=== PATIENT | female | born 1965 | race Caucasian/White ===

== ENCOUNTER 2022-05-15 08:56 | Outpatient (CLI) | payer OTHER, SELFPAY ==
[2022-05-15 13:41] LABS: Basophils Absolute Auto 0.05 K/uL (0.00-0.30); Basophils Percent Auto 0.5 % (0.0-3.0); Chloride* 108 mmol/L (96-114); Eosinophils Absolute Auto 0.56 K/uL (0.00-0.50); Eosinophils Percent Auto 5.3 % (0.0-7.0); Hematocrit 41.5 % (33.0-51.0); Hemoglobin* 14.2 gm/dL (12.0-16.0); Immature Granulocytes Abs Auto 0.04 K/uL (0.00-0.30); Immature Granulocytes Pct Auto 0.4 %; Lymphocytes Absolute Auto 3.34 K/uL (0.90-2.90); Lymphocytes Percent Auto 31.6 % (20-44); Mean Corpuscular HGB Conc 34 gm/dL (32-36); Mean Corpuscular Hemoglobin 30 pg (26-34); Mean Corpuscular Volume 87 fL (80-100); Monocytes Percent Auto 5.9 % (0.0-11.0); Neutrophils Absolute Auto 5.97 K/uL (1.7-7.0); Neutrophils Percent Auto 56.3 % (42.0-72.0); Platelet Count* 354 K/uL (140-440); Potassium* 4.4 mmol/L (3.6-5.1); Red Blood Count 4.78 m/uL (4.00-5.20); Sodium* 142 mmol/L (135-149); White Blood Count* 10.58 K/uL (4.50-11.00)
[2022-05-15 13:44] LABS: Blood Urea Nitrogen* 13 mg/dL (7-30); Carbon Dioxide* 25 mmol/L (20-32); Cholesterol* 229 mg/dL (90-199); Creatinine* 0.7 mg/dL (0.5-1.5); Estimated Glomerular Filt Rate 102 ml/min
[2022-05-15 13:45] LABS: Calcium* 9.4 mg/dL (8.4-10.6); Glucose* 92 mg/dL (60-115); HDL Cholesterol* 51 mg/dL (>=50); LDL Cholesterol Calculated 161 mg/dL (<100); Triglycerides* 84 mg/dL (40-149)
[2022-05-15 13:48] LABS: Slide Review Reflex No
== END 2022-05-15 08:57 | disposition home or self-care (01) ==
PROVIDERS: PCP Family Medicine; Visit Provider Family Medicine
DX: E78.5 Hyperlipidemia, unspecified (principal); I10 Essential (primary) hypertension; R30.0 Dysuria
CPT/HCPCS: 80048; 80061; 85025

== ENCOUNTER 2022-06-19 14:03 | Outpatient (CLI) | payer OTHER, SELFPAY ==
[2022-06-19 21:38] LABS: Basophils Percent Auto 0.3 % (0.0-3.0); Eosinophils Percent Auto 0.9 % (0.0-7.0); Hematocrit 44.4 % (33.0-51.0); Immature Granulocytes Pct Auto 0.2 %; Lymphocytes Percent Auto 18.3 % (20-44); Mean Corpuscular HGB Conc 34 gm/dL (32-36); Mean Corpuscular Hemoglobin 30 pg (26-34); Mean Corpuscular Volume 87 fL (80-100); Monocytes Percent Auto 6.7 % (0.0-11.0); Neutrophils Percent Auto 73.6 % (42.0-72.0); Platelet Count* 381 K/uL (140-440); Red Blood Count 5.09 m/uL (4.00-5.20); White Blood Count* 19.36 K/uL (4.50-11.00)
[2022-06-19 21:42] LABS: Slide Review Reflex No
[2022-06-19 22:04] LABS: SARS PCR* Negative SARS-CoV-2 (Negative)
[2022-06-20 14:21] LABS: Strep A DNA Probe* DETECTED (Not Detectd)
== END 2022-06-19 14:04 | disposition home or self-care (01) ==
PROVIDERS: PCP Family Medicine; Visit Provider Nurse Practitioner Family
DX: Z20.822 Contact with and (suspected) exposure to COVID-19 (principal); J11.1 Influenza due to unidentified influenza virus with other respiratory manifestations; R19.7 Diarrhea, unspecified
CPT/HCPCS: 85025; 87635; 87651

== ENCOUNTER 2022-06-20 08:23 | Emergency (ER) | payer OTHER, SELFPAY ==
[2022-06-20 08:37] VITALS: BP 183/102; TEMP 36.4; O2SAT 96; BMI 37.1
--- NOTE | 2022-06-20 08:54 | ED.GENADULT ---
HPI - General Adult General Chief complaint: Sore Throat Stated complaint: High white blood count/sore throat Time Seen by Provider: 06/20/22 08:38 History of Present Illness HPI narrative: This 56-year-old female was in urgent care yesterday because of sore throat. Her strep test was negative. Her white count returned significantly elevated at around 19,000. She comes in because of persistent sore throat that she feels is worse on the right side of her throat. And because of her increased white count. She denies having any fevers. She does not have a cough. She does not report any shortness of breath. Related Data Home Medications Medication Instructions Recorded Confirmed aspirin 81 mg tablet,delayed 81 mg PO QDAY 11/17/21 06/19/22 release fluorouracil 5 % topical cream 1 applic topical PRN 11/17/21 06/19/22 nitroglycerin 0.4 mg sublingual 0.4 mg sublingual PRN 11/17/21 06/19/22 tablet pantoprazole 40 mg tablet,delayed 40 mg PO BID 11/17/21 06/19/22 release albuterol sulfate 2.5 mg/3 mL 2.5 mg continuous nebulization 12/18/21 06/19/22 (0.083 %) solution for nebulization Q4-6H PRN bupropion HCl 150 mg 24 hr tablet, 150 mg PO DAILY 12/18/21 06/19/22 extended release camphor-menthol 11 %-10 % topical 1 applic topical .as needed PRN 12/18/21 06/19/22 cream fluoxetine 40 mg capsule 40 mg PO DAILY 12/18/21 06/19/22 meloxicam 15 mg tablet 15 mg PO DAILY 12/18/21 06/19/22 sertraline 25 mg tablet 25 mg PO QDAY 12/18/21 06/19/22 Previous Rx's Medication Instructions Recorded cyclobenzaprine 10 mg tablet 5 - 10 mg PO BID PRN muscle spasm 11/17/21 #30 tabs tramadol 50 mg tablet 50 mg PO Q8H PRN pain #40 tabs 11/17/21 amlodipine 10 mg tablet 10 mg PO QDAY #90 tabs 05/15/22 carvedilol 25 mg tablet 25 mg PO BID #180 tabs 05/15/22 chlorthalidone 25 mg tablet 25 mg PO QDAY #90 tabs 05/15/22 clonidine HCl 0.1 mg tablet 0.1 mg PO QDAY #90 tabs 05/15/22 furosemide 40 mg tablet 40 mg PO QDAY #90 tabs 05/15/22 hydralazine 25 mg tablet 50 mg PO TID #540 tabs 05/15/22 irbesartan 300 mg tablet 300 mg PO DAILY #90 tabs 05/15/22 lisinopril 40 mg tablet 40 mg PO DAILY #90 tabs 05/15/22 spironolactone 25 mg tablet 25 mg PO QDAY #90 tabs 05/15/22 albuterol sulfate 90 mcg/actuation 2 puff inhalation Q6H PRN 05/16/22 aerosol inhaler shortness of breath or wheezing #8.5 grams atorvastatin 40 mg tablet 40 mg PO QHS #90 tabs 05/16/22 peg 3350-electrolytes 236 240 ml PO Q10M #4,000 mL 06/07/22 gram-22.74 gram-6.74 gram-5.86 gram solution (Golytely) amoxicillin 875 mg-potassium 1 tab PO BID #20 tabs 06/20/22 clavulanate 125 mg tablet methylprednisolone 4 mg tablets in See Rx Instructions PO .COMPLEX 06/20/22 a dose pack (Medrol (Andrez)) #21 ea Allergies Allergy/AdvReac Type Severity Reaction Status Date / Time morphine Allergy Severe angioedema Verified 06/19/22 13:30 losartan Allergy Mild Flushing Verified 06/19/22 13:30 oxycodone Allergy Mild Nausea Verified 06/19/22 13:30 ceftriaxone Allergy Unknown Verified 06/19/22 13:30 Review of Systems Status of ROS: Reports: 10 or more systems reviewed and unremarkable except as noted in History and below Narrative: Constitutional: No fevers, no weight gain or loss. Eyes: No discharge. No vision changes. HENT: No congestion. Sore throat as described above. Cardiovascular: No chest pain, no palpitations. Respiratory: No shortness of breath, no wheezes, no cough. Gastrointestinal: No abdominal pain, no vomiting, no diarrhea. Genitourinary: No dysuria, no hematuria. Musculoskeletal: Normal range of motion. Skin: No rashes, no pruritis. Neurological: No dizziness, weakness, sensory change, speech change. Endo/Heme/Allergies: No bruising or bleeding. No polydipsia. Pysch: no suicidality, no anxiety, no insomnia. All other systems reviewed and are negative. [facility] Medical History (Updated 06/20/22 @ 08:58 by Callum Zapien MD) Anxiety Branch retinal vein occlusion of left eye (2009) Depression Dyslipidemia Fracture of distal end of fibula Gastroesophageal reflux disease History of esophageal dilatation (2001) History of hydronephrosis (12/02/14) History of Meniere's disease (2008) History of squamous cell carcinoma of skin (01/25/15) History of suicide attempt (04/2013) History of vitamin D deficiency Hyperlipidemia Hypertension Hypertensive urgency (05/2019) Mild intermittent asthma Obstruction of esophagus due to food impaction Presence of cardiac pacemaker Rosacea Schatzki's ring of distal esophagus Surgical History (Updated 11/16/21 @ 16:09 by Jonnie Bryant) History of 3 sections History of cholecystectomy (2013) History of dilation and curettage History of esophagogastroduodenoscopy (EGD) (2010) History of foot surgery (1986) History of hysterectomy (2000) History of lumbar fusion (2010) History of radiofrequency ablation (RFA) procedure for cardiac arrhythmia (06/2011) History of ureterostomy (1985) Status post dilation of esophageal narrowing Social History (Updated 12/19/21 @ 02:18 by Bhupinder Arzola MD) Narrative: Does not drink alcohol Does not have regular exercise regimen , dispatcher [employer], 3 kids Non-smoker Smoking Status: Never smoker Little interest or pleasure in doing things: not at all Feeling down, depressed, or hopeless: not at all Exam Narrative: Exam Narrative: Constitutional: Well-developed, well-nourished, no acute distress. HEENT: Normocephalic, atraumatic. Pharyngeal erythema without significant hypertrophy of the tonsils. There is no exudate. No muffled voice or trismus. Neck: Normal range of motion. Nontender. Supple. Heart: Regular. No murmurs. Normal rate. Intact distal pulses. Lungs: Clear to auscultation. No chest discomfort. No wheezes, rhonchi, or rales. Abdomen: Normal bowel sounds. Nontender. No rebound tenderness. Genitalia: Deferred. Back: No midline tenderness. Normal range of motion. Extremities: Normal range of motion. No injury. Skin: Intact. No rash. Warm. No erythema or pallor. Neurologic: No altered sensation. No weakness. Alert and oriented. Psychiatric: No suicidality. No anxiety or depression. No insomnia. Nursing notes and vitals signs are reviewed. Const: Vital Signs, click to edit/add: Vital Signs - 24 hr 06/20/22 08:37 Temperature 97.6 F Blood Pressure [Ri ght Upper Arm] 183/102 H Pulse Oximetry 96 Oxygen Delivery Me thod Room Air Course Vital Signs Vital signs: Initial Vital Signs Temperature 97.6 F 06/20/22 08:37 Temperature Source Temporal Artery Scan 06/20/22 08:37 Blood Pressure 183/102 H 06/20/22 08:37 Blood Pressure Mean 129 06/20/22 08:37 Pulse Oximetry 96 06/20/22 08:37 Oxygen Delivery Method 06/20/22 08:37 Vital Signs Temperature 97.6 F 06/20/22 08:37 Blood Pressure 183/102 H 06/20/22 08:37 Pulse Oximetry 96 06/20/22 08:37 Oxygen Delivery Method 06/20/22 08:37 Temperature 97.6 F 06/20/22 08:37 Blood Pressure 183/102 H 06/20/22 08:37 Pulse Oximetry 96 06/20/22 08:37 Oxygen Delivery Method 06/20/22 08:37 Medical Decision Making [facility] Narrative Medical decision making narrative: This patient comes in with persistent sore throat and did have a significantly elevated white count from a visit yesterday. Her strep test was negative. Her exam today is not showing signs or symptoms of a peritonsillar abscess. She does not have muffled voice or trismus. There is no unilateral swelling of her tonsils. I did discuss CT imaging of the neck but indicated this is not indicated at this time. It does seem that her pharyngitis is a bacterial infection based on her significant white count and her symptoms. She did receive a prescription for Augmentin and Medrol Dosepak. I describe signs or symptoms that would indicate a need for return and re-evaluation. Discharge Plan Discharge Clinical Impression: Pharyngitis Patient Disposition: Home, Self-Care Condition: Unchanged Additional Instructions: Take medication as prescribed. Follow up with MD or return if worsening symptoms happen. Prescriptions: New methylprednisolone [Medrol (Andrez)] 4 mg tablets,dose pack See Rx Instructions .ROUTE .COMPLEX Qty: 21 0RF Rx Instructions: orally per package directions amoxicillin-pot clavulanate 875-125 mg tablet 1 tab PO BID Qty: 20 0RF No Action amlodipine 10 mg tablet 10 mg PO QDAY Qty: 90 3RF carvedilol 25 mg tablet 25 mg PO BID Qty: 180 3RF chlorthalidone 25 mg tablet 25 mg PO QDAY Qty: 90 3RF clonidine HCl 0.1 mg tablet 0.1 mg PO QDAY Qty: 90 3RF furosemide 40 mg tablet 40 mg PO QDAY Qty: 90 3RF hydralazine 25 mg tablet 50 mg PO TID Qty: 540 3RF irbesartan 300 mg tablet 300 mg PO DAILY Qty: 90 3RF spironolactone 25 mg tablet 25 mg PO QDAY Qty: 90 3RF lisinopril 40 mg tablet 40 mg PO DAILY Qty: 90 3RF pantoprazole 40 mg tablet,delayed release (DR/EC) 40 mg PO BID Label Comments: TAKE 1 TABLET BY ORAL ROUTE 2 TIMES EVERY DAY nitroglycerin 0.4 mg tablet, sublingual 0.4 mg sublingual PRN fluorouracil 5 % cream 1 applic topical PRN aspirin 81 mg tablet,delayed release (DR/EC) 81 mg PO QDAY tramadol 50 mg tablet 50 mg PO Q8H PRN (Reason: pain) Qty: 40 0RF cyclobenzaprine 10 mg tablet 5 - 10 mg PO BID PRN (Reason: muscle spasm) Qty: 30 0RF camphor-menthol 11-10 % cream 1 applic topical .as needed PRN bupropion HCl 150 mg tablet extended release 24 hr 150 mg PO DAILY meloxicam 15 mg tablet 15 mg PO DAILY fluoxetine 40 mg capsule 40 mg PO DAILY albuterol sulfate 2.5 mg /3 mL (0.083 %) solution for nebulization 2.5 mg continuous nebulization Q4-6H PRN sertraline 25 mg tablet 25 mg PO QDAY atorvastatin 40 mg tablet 40 mg PO QHS Qty: 90 3RF albuterol sulfate 90 mcg/actuation HFA aerosol inhaler 2 puff inhalation Q6H PRN (Reason: shortness of breath or wheezing) Qty: 8.5 5RF peg 3350-electrolytes [Golytely] 236-22.74-6.74 -5.86 gram recon soln 240 ml PO Q10M Qty: 4000 0RF Rx Instructions: until fecal effluent is clear Follow Up/Referrals: Bhupinder Arzola MD [Primary Care Provider] - Stand Alone Forms: MyHealth Info Instructions
== END 2022-06-20 09:29 | disposition home or self-care (01) ==
PROVIDERS: Emergency Provider Emergency Medicine Emergency Medical Services; PCP Family Medicine
DX: J02.9 Acute pharyngitis, unspecified (principal)
CPT/HCPCS: 99282; 99283; 99284

== ENCOUNTER 2022-07-09 12:09 | Outpatient (CLI) | payer OTHER, SELFPAY ==
--- NOTE | 2022-07-09 12:52 | W.ANESCHARGE ---
Anesthesia Charges Start Date/Time Anesthesia Start Date: 07/09/22 Anesthesia Start Time: 13:11 Stop Date/Time Anesthesia Stop Date: 07/09/22 Anesthesia Stop Time: 13:41
--- NOTE | 2022-07-09 14:09 | W.ANESCHARGE ---
Anesthesia Charges Start Date/Time Anesthesia Start Date: 07/09/22 Anesthesia Start Time: 13:11 Stop Date/Time Anesthesia Stop Date: 07/09/22 Anesthesia Stop Time: 13:41
== END 2022-07-09 12:10 | disposition home or self-care (01) ==
LOC: OP CLINIC 12:10
PROVIDERS: PCP Family Medicine; Visit Provider Surgery
DX: Z12.11 Encounter for screening for malignant neoplasm of colon (principal); K63.5 Polyp of colon; K62.1 Rectal polyp; K62.89 Other specified diseases of anus and rectum; K64.4 Residual hemorrhoidal skin tags
CPT/HCPCS: 00811; 00812; 45385; 88305; J2704

== ENCOUNTER 2022-10-15 15:14 | Outpatient (CLI) | payer OTHER, SELFPAY ==
--- NOTE | 2022-10-15 15:20 | CRLHL7_ITS ---
For Patients: As a result of the Century Cures Act, medical imaging exams and procedure reports are released immediately into your electronic medical record. You may view this report before your referring provider. If you have questions, please contact your health care provider. BILATERAL SCREENING MAMMOGRAM WITH COMPUTER-AIDED DETECTION AND TOMOSYNTHESIS TECHNIQUE: CC and MLO views were obtained. These mammographic images have been obtained using full-field digital technique. These mammographic images were interpreted with the benefit of computer-aided detection. Breast Tomosynthesis was used in this interpretation. COMPARISON FILM: 10/12/21, 08/29/20, 06/02/19. FINDINGS: There are scattered areas of fibroglandular density IMPRESSION: There is no radiographic evidence for malignancy. ASSESSMENT: BI-RADS Category 1: Negative RECOMMENDATION: Routine screening mammogram in 1 year. A lay language report of this examination will be provided to the patient. Bhupinder Carson M.D. Diagnostic Radiologist [email or web address] SHANTI/Dictated by: Bhupinder Carson MD @ 10/16/2022 1:15:00 PM (Electronically Signed)
== END 2022-10-15 15:15 | disposition home or self-care (01) ==
LOC: MAMMO 15:14
PROVIDERS: PCP Family Medicine; Visit Provider Family Medicine
DX: Z12.31 Encounter for screening mammogram for malignant neoplasm of breast (principal)
CPT/HCPCS: 77063; 77067

== ENCOUNTER 2022-11-15 09:12 | Outpatient (CLI) | payer OTHER, SELFPAY | END 2022-11-15 09:13 | disposition home or self-care (01) | PROVIDERS: PCP Family Medicine; Visit Provider Family Medicine | DX: R21 Rash and other nonspecific skin eruption (principal); I10 Essential (primary) hypertension; E78.5 Hyperlipidemia, unspecified; M79.10 Myalgia, unspecified site; R59.0 Localized enlarged lymph nodes | CPT/HCPCS: 80053; 86039 ==

== ENCOUNTER 2022-11-22 15:51 | Outpatient (CLI) | payer OTHER, SELFPAY ==
--- NOTE | 2022-11-22 | CRLHL7_ITS ---
For Patients: As a result of the Century Cures Act, medical imaging exams and procedure reports are released immediately into your electronic medical record. You may view this report before your referring provider. If you have questions, please contact your health care provider. INDICATION: Right-sided neck lump. TECHNIQUE: CT images acquired through the neck following intravenous contrast. COMPARISON: None. FINDINGS: Enlarged bilateral level II, left level III, and left level IV lymph nodes. Dominant right level IIa node measures 2.6 cm (series 2, image 30). The nasopharynx, oropharynx, hypopharynx, and larynx are widely patent and without enhancing lesions. No thickening of the epiglottis or retropharyngeal edema. No enhancing lesions in the oral cavity and floor of mouth. The parotid and submandibular glands are unremarkable. The thyroid gland is unremarkable. Limited images through the brain are without pathologic intracranial enhancement. Minimal left maxillary sinus mucosal thickening. Postsurgical changes of left canal wall up mastoidectomy. Mastoid bowl is well aerated. Multilevel cervical spondylosis. No aggressive osseous lesions. No concerning opacities in the visualized lungs. IMPRESSION: Multiple enlarged bilateral level II as well as left level III and IV lymph nodes are indeterminate. While these findings may be reactive, lymphoproliferative disorders such as lymphoma could also have this appearance. Short-term follow-up imaging and/or direct tissue sampling is recommended. Please note that all CT scans at this facility use dose modulation, iterative reconstruction, and/or weight-based dosing when appropriate to reduce radiation dose to as low as reasonably achievable. Dictated by Jasen Lino MD @ 11/23/2022 9:01:38 PM (Electronically Signed)
--- OUTSIDE RECORDS SUMMARY | 2022-11-22 15:54 | XMS_ITS | Continuity of Care Document ---
Author Name Unknown Organization [facility] Address [address] [place] [address] [address] [place] [address] Phone Care Team Providers Care Radiation Technician Name Role Phone Stone LICONA, Lucas Unavailable Unavailable Allergies, Adverse Reactions, Alerts Substance Reaction Status Criticality CEFTRIAXONE SODIUM Active No Inform ation HYDROCODONE BITARTRATE Active No In formation acetaminophen Active No Information WARNIN allergy(ies) could not be collected because the type is not supported. Please contact the source practice for further details. Medications Medication Instructions Dosage Effective Dates (start - stop) Status Comments Medrol (Andrez) 4 mg Tabs in a Dose Pack take by Oral route As Directed 0.00 - Active in clinic Procedures Procedure Date Postop followup visit X-ray exam lower spine 2-3 views 2010 Postop followup visit X-ray exam lower spine 2-3 views 2010 Lumbar spine fusion, posterolateral Lumbar spine fus, pstr intrbdy sngl Apply spinal prosthetic device 11 Insert spine fixation, posterior 2010 Autograft, spine surgery, local 011 Allograft, spine surg, morselized Aspiration, bone marrow PA Assist Lumbar spine fusion, posterola teral PA Assist Lumbar spine fus, pstr intrbdy sngl PA Assist Apply spinal prosthetic device PA Assist Insert spine fixation, posteri or Office/outpatient visit,est, mod 2010 Office/outpatient visit,new, mod 2009 Advance Directives Directive Yes / No Effective Date File Name No Information Encounters Encounter Description Practice Location Reason(s) For Visit Diagnoses Date Provider Providers Copied on Encounter [facility], [address], [place], [address], [place] tel:[phone] [facility] [facility] No Information 2 Stone Zavala. [facility], [address], [place], [place], [id number] , [place]. [phone] [facility], [address], [place], [address], [place] tel:[phone] [place] [address] No Information 1 Tyler Yuri. [facility], [address], [address], [place], [place], [id number] , [place]. [phone] Referring Provider: Jordan Fang, [address], [address]. tel:[phone] [facility], [address] [place], [place] [address] [address], [place], [address], [place] tel:[phone] 13[address] [facility] No Information 1 Tyler Yuri. [facility], [address], [address], [place], [place], [id number] , [place]. tel:[phone] Referring Provider: Jordan Fang, [address], [address]. tel:[phone] [facility], [address] [place], [place] [address] [address], [place], [address], [place] tel:[phone] [address] [place] [address] No Information 1 Tyler Yuri. [facility], [address], [address], [place], [place], [id number] , [place]. tel:[phone] Referring Provider: Jordan Fang, [address], [address]. tel:[phone] Office/outpat ient visit,est, mod [facility], [address], [place], [address], [place] tel:[phone] [facility] No Information 1 Tyler Yuri. [facility], [address] [place] [address], [address], [place], [place], [id number] , [place]. tel:[phone] Referring Provider: Jordan Fang, [address], [address]. tel:[phone] Office/outpat ient visit,new, mod [facility], [address] [facility] [address], [place], [address], [place] tel:[phone] [facility] No Information 0 Tyler Yuri. [facility], [address], [address], [place], [place], [id number] , [place]. tel:[phone] Referring Provider: Jordan Fang, [address], [address]. tel:[phone] Family History Family Member Type Diagnosis Age At Onset No Information Payers Payer name Insurance type Covered democrat ID Authorraizaa prerna(s) [employer] [id number] Social History Type Description Quantity Date Captured Comments Sex Female Smoking Status No Information Chief Complaint And Reason For Visit No Information Reason For Referral Reason For Referral No Information History Of Present Illness Encounter Date Complaint History Of Prese nt Illness No Information Functional Status Date Functional Assessmen t No Information Instructions Date Instruction Additional Infor mation No Information Assessments Type Assessment Date No Information Patient Care Teams Name Effective Dates (start - stop) Status Members No Information
== END 2022-11-22 15:52 | disposition home or self-care (01) ==
LOC: CT 15:51
PROVIDERS: PCP Family Medicine; Visit Provider Family Medicine
DX: R22.1 Localized swelling, mass and lump, neck (principal); R59.0 Localized enlarged lymph nodes
CPT/HCPCS: 70491; Q9967

== ENCOUNTER 2022-11-28 16:03 | Outpatient (CLI) | payer OTHER, SELFPAY ==
--- NOTE | 2022-11-28 16:00 | CRLHL7_ITS ---
For Patients: As a result of the 21st Century Cures Act, medical imaging exams and procedure reports are released immediately into your electronic medical record. You may view this report before your referring provider. If you have questions, please contact your health care provider. INDICATION: localized enlarged lymph nodes (cervical lymphadenopathy) TECHNIQUE: CT chest, abdomen and pelvis acquired with 99cc Isovue-370 IV contrast. COMPARISON: None. FINDINGS: CHEST: Cardiovascular structures: Heart size is normal. Thoracic aorta and main pulmonary artery are normal in caliber. Mediastinum and [place]: No mass or adenopathy. Lungs and pleura: Lungs and pleural spaces are clear. No suspicious nodules, infiltrates, or effusions. Chest wall and axilla: No mass or adenopathy. Bones: No suspicious bone lesions. Unremarkable for age. ABDOMEN AND PELVIS: Liver: Hepatic steatosis. Gallbladder and bile ducts: Status post cholecystectomy. Pancreas: Unremarkable. Spleen: Unremarkable. Adrenal glands: Unremarkable. Kidneys: The kidneys enhance symmetrically. Moderate to severe dilatation of the right renal collecting system which may relate to ureteropelvic junction obstruction/stricture. The more distal ureters only minimally distended. Few punctate right intrarenal calculi without evidence of ureteral calculus. Minimal left hydronephrosis. The bladder appears unremarkable. There are surgical clips inferomedial to the right renal collecting system. GI tract: No evidence of obstruction or inflammation. Unremarkable appearing appendix Vascular structures: Mottled sclerosis. Lymph nodes: No enlarged lymph nodes by size criteria Miscellaneous: Unremarkable. No free air or significant free fluid. Pelvic Organs: Status post hysterectomy. Bones: No acute fracture or aggressive osseous lesion. L4-5 posterior spinal fusion. IMPRESSION: 1. No evidence of enlarged lymph nodes by size criteria within the chest, abdomen, or pelvis. Spleen size within normal limits. 2. Moderate to severe dilatation of the right renal collecting system which may relate to ureteropelvic junction obstruction/stricture. The more distal ureters only minimally distended. Few punctate right intrarenal calculi without evidence of ureteral calculus. There are surgical clips inferomedial to the right renal collecting system. Findings are indeterminate. CT urogram could be considered if clinically warranted. 3. Hepatic steatosis Please note that all CT scans at this facility use dose modulation, iterative reconstruction, and/or weight-based dosing when appropriate to reduce radiation dose to as low as reasonably achievable. Dictated by Lonnie Jones MD @ 11/28/2022 5:49:35 PM (Electronically Signed)
--- OUTSIDE RECORDS SUMMARY | 2022-11-28 16:06 | XMS_ITS | Continuity of Care Document ---
Author Name Unknown Organization Z [facility] Address [address] [place] [address] [address] [place] [address] Phone Care Team Providers Care Director Of Mobile Marketing Name Role Phone Stone LICONA, Lucas Unavailable [...] Date Provider Providers Copied on Encounter Z [facility] [place], [address], [place], [address], [place] tel:[phone] [facility] No Information 2 Stone Zavala. [facility], [address], [place], [place], [id number] , [place]. [phone] Z [facility] [place], [address], [place], [address], [place] tel:[phone] [place] [address] No Information 1 Tyler Yuri. [facility], [address], [address], [place], [place], [id number] , [place]. [phone] Referring Provider: Jordan Fang, [address], [address]. tel:[phone] Z [facility] [place], [address] [place], [place] [address] [address], [place], [address], [place] tel:[phone] [facility] No Information 1 Tyler Yuri. [facility], [address], [address], [place], [place], [id number] , [place]. tel:[phone] Referring Provider: Jordan Fang, [address], [address]. tel:[phone] [facility] [place], [address] [place], [place] [address] [address], [place], [address], [place] tel:[phone] [address] [place] [address] No Information 1 Tyler Yuri. [facility] [place], [address], [address], [place], [place], [id number] , [place]. tel:[phone] Referring Provider: Jordan Fang, [address], [address]. tel:[phone] Office/outpat ient visit,est, mod Z [facility], [address], [place], [address], [place] tel:[phone] [facility] No Information 1 Tyler Yuri. [facility], [address] [place] [address], [address], [place], [place], [id number] , [place]. tel:[phone] Referring Provider: Jordan Fang, [address], [address]. tel:[phone] Office/outpat ient visit,new, mod Z [facility], [address] [facility], [place], [address], [place] tel:[phone] [facility] No Information 0 Tyler Yuri. [facility] [place], [address], [address], [place], [place], [id number] , [place]. tel:[phone] Referring Provider: Jordan Fang, [address], [address]. tel:[phone] Family History Family Member Type Diagnosis Age At Onset No Information Payers Payer name Insurance type Covered republican ID Authorraizaa prerna(s) [employer] [id number] Social History Type Description Quantity Date Captured [...]
== END 2022-11-28 16:04 | disposition home or self-care (01) ==
LOC: CT 16:04
PROVIDERS: PCP Family Medicine; Visit Provider Family Medicine
DX: R59.9 Enlarged lymph nodes, unspecified (principal)
CPT/HCPCS: 71260; 74177; 86140; 86618; Q9967

== ENCOUNTER 2022-12-03 08:17 | Outpatient (CLI) | payer OTHER, SELFPAY ==
--- NOTE | 2022-12-03 08:15 | CRLHL7_ITS ---
For Patients: As a result of the Century Cures Act, medical imaging exams and procedure reports are released immediately into your electronic medical record. You may view this report before your referring provider. If you have questions, please contact your health care provider. ULTRASOUND-GUIDED RIGHT CERVICAL LYMPH NODE BIOPSY CLINICAL HISTORY: Enlarged right cervical lymph nodes, indeterminate COMPARISON STUDIES: CT 11/22/2022 TECHNIQUE: Real-time ultrasound with image documentation was used for targeting the right cervical lymph node lesion. Core biopsy specimens were obtained using an automated gun with a 18-gauge biopsy needle. CONSENT and TIME OUT: The procedure, risks, and alternatives were explained to the patient and a consent was signed. [place] Protocol was followed including pre-procedure verification that relevant information/documentation was available, reviewed and properly matched to the patient; consent accurate and complete; and equipment and supplies available. Time Out was conducted just prior to starting procedure to verify the four required elements: patient identity, correct side/site marked (if applicable), procedure, relevant images/results properly labeled and displayed (if applicable). PROCEDURE: The patient was positioned supine on the ultrasound table. The right side of the neck was prepped with ChloraPrep. 8 cc of 1 percent lidocaine was used for local anesthesia. Core samples were obtained. The specimens were placed in 10% formalin and sent to the pathology department. Pressure was held on the biopsy site until all bleeding subsided. The skin incision was closed with Steri-Strips. Post-biopsy instructions were reviewed with the patient, and a written copy was given to her. LATERALITY: Right side of the neck LESION: Enlarged hypoechoic lymph node measuring 2.6 x 1.3 x 2.6 cm. SUSPICION FOR MALIGNANCY: Moderate. NUMBER OF SAMPLES: 5 IMPRESSION: Ultrasound-guided right cervical lymph node biopsy. Dictated by Bhupinder Carson MD @ 12/03/2022 11:59:03 AM (Electronically Signed)
--- OUTSIDE RECORDS SUMMARY | 2022-12-03 08:20 | XMS_ITS | Continuity of Care Document ---
Author Name Unknown Organization Z [facility] Address [address] [place] [address] [address] [place] [address] Phone Care Team Providers Care Career Advisor Name Role Phone Stone LICONA, Lucas Unavailable [...] Date Provider Providers Copied on Encounter Z [facility] [place], [address], [place], [address], [place] tel:[phone] [facility] No Information 2 Stone Zavala. [facility] [place], [address], [place], [place], [id number] , [place]. [phone] [facility] [place], [address], [place], [address], [place] tel:[phone] [place] [address] No Information 1 Tyler Yuri. [facility], [address], [address], [place], [place], [id number] , [place]. [phone] Referring Provider: Jordan Fang, [address], [address]. tel:[phone] [facility] [place], [address] [place], [place] [address] [address], [place], [address], [place] tel:[phone] [facility] No Information 1 Tyler Yuri. [facility], [address], [address], [place], [place], [id number] , [place]. tel:[phone] Referring Provider: Jordan Fang, [address], [address]. tel:[phone] [facility] [place], [address] [place], [place] [address], [place], [address], [place] tel:[phone] [address] [place] [address] No Information 1 Tyler Yuri. [facility] [place], [address], [address], [place], [place], [address] , [place]. tel:[phone] Referring Provider: Jordan Fang, [address], [address]. tel:[phone] Office/outpat ient visit,est, mod Z [facility], [address], [place], [address], [place] tel:[phone] [facility] No Information 1 Tyler Yuri. [facility], [address] [place] [address], [address], [place], [place], [id number] , [place]. tel:[phone] Referring Provider: Jordan Fang, [address], [address]. tel:[phone] Office/outpat ient visit,new, mod Z [facility], [address] [facility], [place], [address], [place] tel:[phone] [facility] No Information 0 Tyler Yuri. [facility] [place], [address], [address], [place], [place], [id number] , [place]. tel:[phone] Referring Provider: Jordan Fang, [address], [address]. tel:[phone] Family History Family Member Type Diagnosis Age At Onset No Information Payers Payer name Insurance type Covered alliance party ID Authorraizaa prerna(s) [employer] CI [id number] Social History Type Description Quantity Date Captured [...]
== END 2022-12-03 08:18 | disposition home or self-care (01) ==
LOC: US 08:18
PROVIDERS: PCP Family Medicine; Visit Provider Surgery
DX: R59.0 Localized enlarged lymph nodes (principal)
CPT/HCPCS: 20206; 38505; 76942; 88305; 88341; 88342; A4649

== ENCOUNTER 2022-12-19 17:34 | Emergency (ER) | payer OTHER, SELFPAY ==
[2022-12-19 17:38] VITALS: BP 194/139; PULSE 95; TEMP 36.9; O2SAT 99; BMI 35.8
--- NOTE | 2022-12-19 17:54 | CRLHL7_ITS ---
For Patients: As a result of the Century Cures Act, medical imaging exams and procedure reports are released immediately into your electronic medical record. You may view this report before your referring provider. If you have questions, please contact your health care provider. INDICATION: Leg pain. TECHNIQUE: Ultrasound venous duplex lower left extremity. Compression venous exam was performed using perales-scale, color Doppler, and spectral Doppler analysis. Permanently recorded images are archived. COMPARISON: None. FINDINGS: Deep veins: Sonographic imaging demonstrates the left common femoral, deep femoral, superficial femoral, popliteal, posterior tibial, peroneal and the contralateral right common femoral veins to be fully compressible with normal color Doppler blood flow. Superficial veins: Greater saphenous vein is fully compressible. No popliteal cyst. IMPRESSION: No deep venous thrombosis in the evaluated veins of the left lower extremity. Dictated by Guru Chowdhury MD @ 12/19/2022 7:11:27 PM (Electronically Signed)
--- NOTE | 2022-12-19 17:54 | CRLHL7_ITS ---
For Patients: As a result of the Cures Act, medical imaging exams and procedure reports are released immediately into your electronic medical record. You may view this report before your referring provider. If you have questions, please contact your health care provider. INDICATION: Pain since yesterday. TECHNIQUE: Left knee 4 views. Permanently recorded images are archived. COMPARISON: None. FINDINGS: No acute fracture or aggressive osseous lesion. Alignment is normal. Small knee joint effusion. The joint spaces are preserved. The soft tissues are unremarkable. IMPRESSION: Small knee joint effusion. No acute bony abnormality. Dictated by Guru Chowdhury MD @ 12/19/2022 7:10:11 PM (Electronically Signed)
--- NOTE | 2022-12-19 17:58 | ED_ITS ---
HPI - General Adult General Time Seen by Provider: 17:58 Date Seen: 12/19/22 Chief complaint: Extremity Pain/Injury, Lower Stated complaint: Pain in knee Time Seen by Provider: 12/19/22 17:35 Source: patient Mode of arrival: ambulatory Limitations: no limitations History of Present Illness HPI narrative: Patient is a 57-year-old female with a history of myalgias, hypertension, depression, anxiety presenting to the emergency department for left leg pain. She states since his tissues of the left lateral pain just behind the knee. States whenever she walks the pain gets worse but does improve when she sits down. Also noticed swelling to her right leg from the knee down to day for she was at work but did improve over time she states. Denies any history of blood clots or surgery. Has no history of cancer but has chronically enlarged lymph nodes and is getting biopsies for them. Denies any fevers, chills. No recent history of travel. Denies numbness or any other injuries. No trauma to the leg. Related Data Home Medications Medication Instructions Recorded Confirmed aspirin 81 mg tablet,delayed 81 mg PO QDAY 11/17/21 12/19/22 release pantoprazole 40 mg tablet,delayed 40 mg PO BID 11/17/21 12/19/22 release fluoxetine 40 mg capsule 40 mg PO DAILY 12/18/21 12/19/22 meloxicam 15 mg tablet 15 mg PO DAILY 12/18/21 12/19/22 sertraline 25 mg tablet 25 mg PO QDAY 12/18/21 12/19/22 atorvastatin 20 mg tablet 20 mg PO BID 10/08/22 12/19/22 albuterol sulfate 90 mcg/actuation 2 puff inhalation Q4-6H PRN 11/27/22 12/19/22 aerosol inhaler shortness of breath or wheezing atorvastatin 40 mg tablet 40 mg PO DAILY 11/27/22 12/19/22 Previous Rx's Medication Instructions Recorded tramadol 50 mg tablet 50 mg PO Q8H PRN pain #40 tabs 11/17/21 amlodipine 10 mg tablet 10 mg PO QDAY #90 tabs 05/15/22 carvedilol 25 mg tablet 25 mg PO BID #180 tabs 05/15/22 chlorthalidone 25 mg tablet 25 mg PO QDAY #90 tabs 05/15/22 furosemide 40 mg tablet 40 mg PO QDAY #90 tabs 05/15/22 hydralazine 25 mg tablet 50 mg (2 x 25 mg) PO TID #540 tabs 05/15/22 irbesartan 300 mg tablet 300 mg PO DAILY #90 tabs 05/15/22 lisinopril 40 mg tablet 40 mg PO DAILY #90 tabs 05/15/22 spironolactone 25 mg tablet 25 mg PO QDAY #90 tabs 05/15/22 bupropion HCl 300 mg 24 hr tablet, 300 mg PO DAILY #90 tabs 09/11/22 extended release clonidine HCl 0.1 mg tablet 0.1 mg PO TID #270 tabs 09/11/22 Allergies Allergy/AdvReac Type Severity Reaction Status Date / Time morphine Allergy Severe angioedema Verified 12/19/22 17:41 losartan Allergy Mild Flushing Verified 12/19/22 17:41 oxycodone Allergy Mild Nausea Verified 12/19/22 17:41 ceftriaxone Allergy Unknown Hives Verified 12/19/22 17:41 Review of Systems Narrative: Review of systems is negative unless otherwise stated in HPI PFSH PFS Medical History (Updated 12/19/22 @ 19:29 by Vahe Machado DO) Severe hypertension ?I10 - Essential (primary) hypertension (ICD-10) Mild intermittent asthma ?J45.20 - Mild intermittent asthma, uncomplicated (ICD-10) Hyperlipidemia ?E78.5 - Hyperlipidemia, unspecified (ICD-10) Schatzki's ring of distal esophagus ?K22.2 - Esophageal obstruction (ICD-10) Rosacea ?L71.9 - Rosacea, unspecified (ICD-10) Presence of cardiac pacemaker ?Z95.0 - Presence of cardiac pacemaker (ICD-10) Obstruction of esophagus due to food impaction ?K22.2 - Esophageal obstruction (ICD-10) ?T18.128A - Food in esophagus causing other injury, initial encounter (ICD- 10) Hypertensive urgency (05/2019) ?I16.0 - Hypertensive urgency (ICD-10) History of vitamin D deficiency ?Z86.39 - Personal history of other endocrine, nutritional and metabolic disease (ICD-10) History of suicide attempt (04/2013) ?Z91.51 - Personal history of suicidal behavior (ICD-10) History of squamous cell carcinoma of skin (01/25/15) ?Z85.828 - Personal history of other malignant neoplasm of skin (ICD-10) History of Meniere's disease (2008) ?Z86.69 - Personal history of other diseases of the nervous system and sense organs (ICD-10) History of hydronephrosis (12/02/14) ?Z87.448 - Personal history of other diseases of urinary system (ICD-10) History of esophageal dilatation (2001) ?Z98.890 - Other specified postprocedural states (ICD-10) Gastroesophageal reflux disease ?K21.9 - Gastro-esophageal reflux disease without esophagitis (ICD-10) Fracture of distal end of fibula ?S82.839A - Other fracture of upper and lower end of unspecified fibula, initial encounter for closed fracture (ICD-10) Depression ?F32.A - Depression, unspecified (ICD-10) Branch retinal vein occlusion of left eye (2009) ?H34.8322 - Tributary (branch) retinal vein occlusion, left eye, stable (ICD- 10) Anxiety ?F41.9 - Anxiety disorder, unspecified (ICD-10) Surgical History Status post dilation of esophageal narrowing ?Z98.890 - Other specified postprocedural states (ICD-10) ?Z87.19 - Personal history of other diseases of the digestive system (ICD-10) History of ureterostomy (1985) ?Z98.890 - Other specified postprocedural states (ICD-10) History of radiofrequency ablation (RFA) procedure for cardiac arrhythmia (06/2011) ?Z98.890 - Other specified postprocedural states (ICD-10) History of lumbar fusion (2010) ?Z98.1 - Arthrodesis status (ICD-10) History of hysterectomy (2000) ?Z90.710 - Acquired absence of both cervix and uterus (ICD-10) History of foot surgery (1986) ?Z98.890 - Other specified postprocedural states (ICD-10) History of esophagogastroduodenoscopy (EGD) (2010) ?Z98.890 - Other specified postprocedural states (ICD-10) History of dilation and curettage ?Z98.890 - Other specified postprocedural states (ICD-10) History of cholecystectomy (2013) ?Z90.49 - Acquired absence of other specified parts of digestive tract (ICD- 10) History of 3 sections ?Z98.891 - History of uterine scar from previous surgery (ICD-10) Family History (Updated 11/15/22 @ 09:26 by Kayla Randolph MD) Other Adopted person Social History Narrative: Does not drink alcohol Does not have regular exercise regimen , dispatcher [employer], 3 kids Non-smoker Smoking Status: Never smoker Do you use any of these nicotine containing products: None Second hand tobacco smoke exposure: No How often do you have a drink containing alcohol: never AUDIT-C Alcohol total score: 0 Non-prescribed substance use: denies use Little interest or pleasure in doing things: not at all Feeling down, depressed, or hopeless: not at all service: No Exam Narrative: Exam Narrative: Const: Well-nourished, Well-developed, in mild distress Eyes: PERRL, no conjunctival injection, and symmetrical lids ENMT: Atraumatic external nose and ears. Moist mucous membranes. MSK:Extremities w/o deformity, Normal Active ROM. Mild swelling left lower extremity. Cap refills less than 2 seconds bilaterally, good pulses, Skin: Warm, Dry. No rashes or lesions. Neuro: Normal Muscle tone, No focal neurological deficits. Psych: Awake, Alert, & Oriented x3. Appropriate mood and affect. Const: Vital Signs, click to edit/add: Vital Signs - 24 hr 12/19/22 17:38 Temperature 98.4 F Pulse Rate [Pulse Oximeter] 95 Blood Pressure [Ri ght Upper Arm] 194/139 H Pulse Oximetry 99 Oxygen Delivery Me thod Room Air Course Vital Signs Vital signs: Initial Vital Signs Temperature 98.4 F 12/19/22 17:38 Temperature Source Temporal Artery Scan 12/19/22 17:38 Pulse Rate 95 12/19/22 17:38 Blood Pressure 194/139 H 12/19/22 17:38 Blood Pressure Mean 157 H 12/19/22 17:38 Blood Pressure Position Sitting 12/19/22 17:38 Pulse Oximetry 99 12/19/22 17:38 Oxygen Delivery Method Room Air 12/19/22 17:38 Vital Signs Temperature 98.4 F 12/19/22 17:38 Pulse Rate 95 12/19/22 17:38 Blood Pressure 194/139 H 12/19/22 17:38 Pulse Oximetry 99 12/19/22 17:38 Oxygen Delivery Method Room Air 12/19/22 17:38 Temperature 98.4 F 12/19/22 17:38 Pulse Rate 95 12/19/22 17:38 Blood Pressure 194/139 H 12/19/22 17:38 Pulse Oximetry 99 12/19/22 17:38 Oxygen Delivery Method Room Air 12/19/22 17:38 Medical Decision Making MDM Narrative Medical decision making narrative: Patient is a 57-year-old female presenting for left leg pain. She states the pain started yesterday. Swelling is occurring from the left knee down. She says has improved significantly but still mildly there. Posterior pain is in the posterior lateral aspect the left knee. Has never had issues with this before. Due to the swelling we will do a DVT ultrasound. This was done and showed no signs of DVTs. X-rays of the left knee were done and shows a small joint effusion. Her symptoms might be secondary to some osteoarthritis. Will discharge home her home with Tylenol and ibuprofen. Will give her an Phil wrap. Informed to follow-up with primary care provider or Orthopedics if symptoms are not improving. She is agreeable to this plan Imaging Data Venous ultrasound left lower extremity: Radiologist's impression: INDICATION: Leg pain. TECHNIQUE: Ultrasound venous duplex lower left extremity. Compression venous exam was performed using perales-scale, color Doppler, and spectral Doppler analysis. Permanently recorded images are archived. COMPARISON: None. FINDINGS: Deep veins: Sonographic imaging demonstrates the left common femoral, deep femoral, superficial femoral, popliteal, posterior tibial, peroneal and the contralateral right common femoral veins to be fully compressible with normal color Doppler blood flow. Superficial veins: Greater saphenous vein is fully compressible. No popliteal cyst. IMPRESSION: No deep venous thrombosis in the evaluated veins of the left lower extremity. Dictated by Guru Chowdhury MD @ 12/19/2022 7:11:27 PM Left knee x-ray: Radiologist's impression: INDICATION: Pain since yesterday. TECHNIQUE: Left knee 4 views. Permanently recorded images are archived. COMPARISON: None. FINDINGS: No acute fracture or aggressive osseous lesion. Alignment is normal. Small knee joint effusion. The joint spaces are preserved. The soft tissues are unremarkable. IMPRESSION: Small knee joint effusion. No acute bony abnormality. Dictated by Guru Chowdhury MD @ 12/19/2022 7:10:11 PM Discharge Plan Discharge Clinical Impression: Effusion of knee joint, left Patient Disposition: Home, Self-Care Condition: Stable Instructions: Swollen Knee Joint (ED) Additional Instructions: Follow-up with your primary care provider or Orthopedics if symptoms are not improving. With Phil wrap for comfort. Take Tylenol and ibuprofen for pain. You have a small effusion to your left knee. This is commonly secondary to osteoarthritis. Prescriptions: No Action amlodipine 10 mg tablet 10 mg PO QDAY Qty: 90 3RF carvedilol 25 mg tablet 25 mg PO BID Qty: 180 3RF chlorthalidone 25 mg tablet 25 mg PO QDAY Qty: 90 3RF furosemide 40 mg tablet 40 mg PO QDAY Qty: 90 3RF hydralazine 25 mg tablet 50 mg PO TID Qty: 540 3RF irbesartan 300 mg tablet 300 mg PO DAILY Qty: 90 3RF spironolactone 25 mg tablet 25 mg PO QDAY Qty: 90 3RF lisinopril 40 mg tablet 40 mg PO DAILY Qty: 90 3RF bupropion HCl 300 mg tablet extended release 24 hr 300 mg PO DAILY Qty: 90 3RF clonidine HCl 0.1 mg tablet 0.1 mg PO TID Qty: 270 3RF albuterol sulfate 90 mcg/actuation HFA aerosol inhaler 2 puff inhalation Q4-6H PRN (Reason: shortness of breath or wheezing) atorvastatin 40 mg tablet 40 mg PO DAILY pantoprazole 40 mg tablet,delayed release (DR/EC) 40 mg PO BID Patient Comments: TAKE 1 TABLET BY ORAL ROUTE 2 TIMES EVERY DAY aspirin 81 mg tablet,delayed release (DR/EC) 81 mg PO QDAY tramadol 50 mg tablet 50 mg PO Q8H PRN (Reason: pain) Qty: 40 0RF meloxicam 15 mg tablet 15 mg PO DAILY fluoxetine 40 mg capsule 40 mg PO DAILY sertraline 25 mg tablet 25 mg PO QDAY atorvastatin 20 mg tablet 20 mg PO BID Follow Up/Referrals: Bhupinder Arzola MD [Primary Care Provider] - Stand Alone Forms: [employer] Info Instructions
[2022-12-19 19:46] VITALS: BP 188/88; PULSE 95; RESP 18; TEMP 36.9; O2SAT 99
--- NOTE | 2022-12-19 19:46 | PC.NURSE ---
SHAR wrap applied to knee, patient DC with no further questions. ambulatory w/o difficulty
== END 2022-12-19 19:49 | disposition home or self-care (01) ==
LOC: ED 19:44
PROVIDERS: Emergency Provider Student in an Organized Health Care Education/Training Program; PCP Family Medicine
DX: M25.462 Effusion, left knee (principal)
CPT/HCPCS: 73564; 93971; 99282; 99283

== ENCOUNTER 2022-12-22 09:57 | Emergency (ER) | payer OTHER, SELFPAY ==
[2022-12-22] VITALS (14 sets, daily range): BP systolic 196–219; BP diastolic 106–119; PULSE 69–89; RESP 18; TEMP 36.3; O2SAT 94–98; BMI 35.9
[2022-12-22] MEDS: ONDANSETRON 2 MG/ML inj 4 MG IVP (10:24)
[2022-12-22] MEDS: 0.9 % SODIUM CHLORIDE 1000 ml 1,000 ML IV (10:24)
--- NOTE | 2022-12-22 10:35 | ED.DIZZY ---
HPI - Dizziness General Chief Complaint: Dizziness/Vertigo Stated Complaint: possible stroke Time Seen by Provider: 12/22/22 10:22 History of Present Illness HPI Narrative: This 57-year-old female comes in reporting vertigo symptoms that came on rather suddenly about a couple hours prior to arrival. She also has hearing changes in her left ear. She has had symptoms like this in the more distant past because of Meniere's disease. She states that she did have a surgery that brought great relief to her Meniere's symptoms until today. She does not have any neurologic deficits and states that if she remains still the vertigo is absent except for some associated nausea. Related Data Home Medications Medication Instructions Recorded Confirmed aspirin 81 mg tablet,delayed 81 mg PO QDAY 11/17/21 12/19/22 release pantoprazole 40 mg tablet,delayed 40 mg PO BID 11/17/21 12/19/22 release fluoxetine 40 mg capsule 40 mg PO DAILY 12/18/21 12/19/22 meloxicam 15 mg tablet 15 mg PO DAILY 12/18/21 12/19/22 sertraline 25 mg tablet 25 mg PO QDAY 12/18/21 12/19/22 atorvastatin 20 mg tablet 20 mg PO BID 10/08/22 12/19/22 albuterol sulfate 90 mcg/actuation 2 puff inhalation Q4-6H PRN 11/27/22 12/19/22 aerosol inhaler shortness of breath or wheezing atorvastatin 40 mg tablet 40 mg PO DAILY 11/27/22 12/19/22 Previous Rx's Medication Instructions Recorded tramadol 50 mg tablet 50 mg PO Q8H PRN pain #40 tabs 11/17/21 amlodipine 10 mg tablet 10 mg PO QDAY #90 tabs 05/15/22 carvedilol 25 mg tablet 25 mg PO BID #180 tabs 05/15/22 chlorthalidone 25 mg tablet 25 mg PO QDAY #90 tabs 05/15/22 furosemide 40 mg tablet 40 mg PO QDAY #90 tabs 05/15/22 hydralazine 25 mg tablet 50 mg (2 x 25 mg) PO TID #540 tabs 05/15/22 irbesartan 300 mg tablet 300 mg PO DAILY #90 tabs 05/15/22 lisinopril 40 mg tablet 40 mg PO DAILY #90 tabs 05/15/22 spironolactone 25 mg tablet 25 mg PO QDAY #90 tabs 05/15/22 bupropion HCl 300 mg 24 hr tablet, 300 mg PO DAILY #90 tabs 09/11/22 extended release clonidine HCl 0.1 mg tablet 0.1 mg PO TID #270 tabs 09/11/22 meclizine 25 mg tablet 25 mg PO QID #20 tabs 12/22/22 methylprednisolone 4 mg tablets in See Rx Instructions PO .COMPLEX 12/22/22 a dose pack (Medrol (Andrez)) #21 ea ondansetron HCl 4 mg tablet 4 mg PO Q6H #20 tabs 12/22/22 Allergies Allergy/AdvReac Type Severity Reaction Status Date / Time morphine Allergy Severe angioedema Verified 12/19/22 17:41 losartan Allergy Mild Flushing Verified 12/19/22 17:41 oxycodone Allergy Mild Nausea Verified 12/19/22 17:41 ceftriaxone Allergy Unknown Hives Verified 12/19/22 17:41 Review of Systems Status of ROS: Reports: 10 or more systems reviewed and unremarkable except as noted in History and below Narrative: Constitutional: No fevers, no weight gain or loss. Eyes: No discharge. No vision changes. HENT: No congestion, no sore throat, no ear pain. Cardiovascular: No chest pain, no palpitations. Respiratory: No shortness of breath, no wheezes, no cough. Gastrointestinal: No abdominal pain, no diarrhea. She has nausea and vomiting related to vertigo symptoms. Genitourinary: No dysuria, no hematuria. Musculoskeletal: Normal range of motion. Skin: No rashes, no pruritis. Neurological: No weakness, sensory change, speech change. Vertigo symptoms with left-sided hearing changes as described above. Endo/Heme/Allergies: No bruising or bleeding. No polydipsia. Pysch: no suicidality, no anxiety, no insomnia. All other systems reviewed and are negative. [facility] Medical History (Updated 12/22/22 @ 13:00 by Callum Zapien MD) Severe hypertension ?I10 - Essential (primary) hypertension (ICD-10) Mild intermittent asthma ?J45.20 - Mild intermittent asthma, uncomplicated (ICD-10) Hyperlipidemia ?E78.5 - Hyperlipidemia, unspecified (ICD-10) Schatzki's ring of distal esophagus ?K22.2 - Esophageal obstruction (ICD-10) Rosacea ?L71.9 - Rosacea, unspecified (ICD-10) Presence of cardiac pacemaker ?Z95.0 - Presence of cardiac pacemaker (ICD-10) Obstruction of esophagus due to food impaction ?K22.2 - Esophageal obstruction (ICD-10) ?T18.128A - Food in esophagus causing other injury, initial encounter (ICD-10) Hypertensive urgency (05/2019) ?I16.0 - Hypertensive urgency (ICD-10) History of vitamin D deficiency ?Z86.39 - Personal history of other endocrine, nutritional and metabolic disease (ICD-10) History of suicide attempt (04/2013) ?Z91.51 - Personal history of suicidal behavior (ICD-10) History of squamous cell carcinoma of skin (01/25/15) ?Z85.828 - Personal history of other malignant neoplasm of skin (ICD-10) History of Meniere's disease (2008) ?Z86.69 - Personal history of other diseases of the nervous system and sense organs (ICD-10) History of hydronephrosis (12/02/14) ?Z87.448 - Personal history of other diseases of urinary system (ICD-10) History of esophageal dilatation (2001) ?Z98.890 - Other specified postprocedural states (ICD-10) Gastroesophageal reflux disease ?K21.9 - Gastro-esophageal reflux disease without esophagitis (ICD-10) Fracture of distal end of fibula ?S82.839A - Other fracture of upper and lower end of unspecified fibula, initial encounter for closed fracture (ICD-10) Depression ?F32.A - Depression, unspecified (ICD-10) Branch retinal vein occlusion of left eye (2009) ?H34.8322 - Tributary (branch) retinal vein occlusion, left eye, stable (ICD-10) Anxiety ?F41.9 - Anxiety disorder, unspecified (ICD-10) Surgical History Status post dilation of esophageal narrowing ?Z98.890 - Other specified postprocedural states (ICD-10) ?Z87.19 - Personal history of other diseases of the digestive system (ICD-10) History of ureterostomy (1985) ?Z98.890 - Other specified postprocedural states (ICD-10) History of radiofrequency ablation (RFA) procedure for cardiac arrhythmia (06/2011) ?Z98.890 - Other specified postprocedural states (ICD-10) History of lumbar fusion (2010) ?Z98.1 - Arthrodesis status (ICD-10) History of hysterectomy (2000) ?Z90.710 - Acquired absence of both cervix and uterus (ICD-10) History of foot surgery (1986) ?Z98.890 - Other specified postprocedural states (ICD-10) History of esophagogastroduodenoscopy (EGD) (2010) ?Z98.890 - Other specified postprocedural states (ICD-10) History of dilation and curettage ?Z98.890 - Other specified postprocedural states (ICD-10) History of cholecystectomy (2013) ?Z90.49 - Acquired absence of other specified parts of digestive tract (ICD-10) History of 3 sections ?Z98.891 - History of uterine scar from previous surgery (ICD-10) Family History (Updated 11/15/22 @ 09:26 by Kayla Randolph MD) Other Adopted person Social History Narrative: Does not drink alcohol Does not have regular exercise regimen , dispatcher [employer], 3 kids Non-smoker Smoking Status: Never smoker Do you use any of these nicotine containing products: None Second hand tobacco smoke exposure: No How often do you have a drink containing alcohol: never AUDIT-C Alcohol total score: 0 Non-prescribed substance use: denies use Little interest or pleasure in doing things: not at all Feeling down, depressed, or hopeless: not at all service: No Exam Narrative: Exam Narrative: Constitutional: Well-developed, well-nourished, no acute distress. HEENT: Normocephalic, atraumatic. Neck: Normal range of motion. Nontender. Supple. Heart: Regular. No murmurs. Normal rate. Intact distal pulses. Lungs: Clear to auscultation. No chest discomfort. No wheezes, rhonchi, or rales. Abdomen: Normal bowel sounds. Nontender. No rebound tenderness. Genitalia: Deferred. Back: No midline tenderness. Normal range of motion. Extremities: Normal range of motion. No injury. Skin: Intact. No rash. Warm. No erythema or pallor. Neurologic: No altered sensation. No weakness. Alert and oriented. Vertigo symptoms with left-sided hearing changes. No facial asymmetry. Tongue is midline. Ntnuom-zu-hopy is normal. No pronator drift. She is able to raise each leg to my hand. Psychiatric: No suicidality. No anxiety or depression. No insomnia. Nursing notes and vitals signs are reviewed. Const: Vital Signs, click to edit/add: Vital Signs - 24 hr 12/22/22 10:03 Temperature 97.3 F L Pulse Rate [Right Pulse Oximeter] 89 Respiratory Rate 18 Blood Pressure [Ri ght Upper Arm] 197/116 H Pulse Oximetry 95 Oxygen Delivery Me thod Room Air Course Vital Signs Vital signs: Initial Vital Signs Temperature 97.3 F L 12/22/22 10:03 Temperature Source Temporal Artery Scan 12/22/22 10:03 Pulse Rate 89 12/22/22 10:03 Respiratory Rate 18 12/22/22 10:03 Blood Pressure 197/116 H 12/22/22 10:03 Blood Pressure Mean 143 H 12/22/22 10:03 Blood Pressure Position Sitting 12/22/22 10:03 Pulse Oximetry 95 12/22/22 10:03 Oxygen Delivery Method Room Air 12/22/22 10:03 Vital Signs Temperature 97.3 F L 12/22/22 10:03 Pulse Rate 89 12/22/22 10:03 Respiratory Rate 18 12/22/22 10:03 Blood Pressure 197/116 H 12/22/22 10:03 Pulse Oximetry 95 12/22/22 10:03 Oxygen Delivery Method Room Air 12/22/22 10:03 Temperature 97.3 F L 12/22/22 10:03 Pulse Rate 89 12/22/22 10:03 Respiratory Rate 18 12/22/22 10:03 Blood Pressure 197/116 H 12/22/22 10:03 Pulse Oximetry 95 12/22/22 10:03 Oxygen Delivery Method Room Air 12/22/22 10:03 MDM - Dizziness MDM Narrative Medical decision making narrative: This patient comes in with nausea and vertigo symptoms. She also has hearing changes in her left ear. These are classic symptoms for Meniere's disease which she has had in the past and had a surgery to correct it. She does not have persistent vertigo symptoms if she remains still. Additionally her neurologic exam is completely normal so her vertigo is not likely from a central cause. An IV was established where she received a L of normal saline and Zofran 4 mg. She also received an oral dose of meclizine 25 mg. Later she received an IV dose of dexamethasone 10 mg. She is feeling better and is okay to return home. She does have a follow-up appointment with hazardous material specialist in a couple weeks. She received prescriptions for Zofran, meclizine, and Medrol Dosepak Discharge Plan Discharge Clinical Impression: Meniere's disease Patient Disposition: Home, Self-Care Condition: Improved Additional Instructions: Take medication as needed and indicated. [facility] as scheduled. Return if symptoms are recurrent or worsening. Prescriptions: New ondansetron HCl 4 mg tablet 4 mg PO Q6H Qty: 20 0RF meclizine 25 mg tablet 25 mg PO QID Qty: 20 0RF methylprednisolone [Medrol (Andrez)] 4 mg tablets,dose pack See Rx Instructions .ROUTE .COMPLEX Qty: 21 0RF Rx Instructions: orally per package directions No Action amlodipine 10 mg tablet 10 mg PO QDAY Qty: 90 3RF carvedilol 25 mg tablet 25 mg PO BID Qty: 180 3RF chlorthalidone 25 mg tablet 25 mg PO QDAY Qty: 90 3RF furosemide 40 mg tablet 40 mg PO QDAY Qty: 90 3RF hydralazine 25 mg tablet 50 mg PO TID Qty: 540 3RF irbesartan 300 mg tablet 300 mg PO DAILY Qty: 90 3RF spironolactone 25 mg tablet 25 mg PO QDAY Qty: 90 3RF lisinopril 40 mg tablet 40 mg PO DAILY Qty: 90 3RF bupropion HCl 300 mg tablet extended release 24 hr 300 mg PO DAILY Qty: 90 3RF clonidine HCl 0.1 mg tablet 0.1 mg PO TID Qty: 270 3RF albuterol sulfate 90 mcg/actuation HFA aerosol inhaler 2 puff inhalation Q4-6H PRN (Reason: shortness of breath or wheezing) atorvastatin 40 mg tablet 40 mg PO DAILY pantoprazole 40 mg tablet,delayed release (DR/EC) 40 mg PO BID Patient Comments: TAKE 1 TABLET BY ORAL ROUTE 2 TIMES EVERY DAY aspirin 81 mg tablet,delayed release (DR/EC) 81 mg PO QDAY tramadol 50 mg tablet 50 mg PO Q8H PRN (Reason: pain) Qty: 40 0RF meloxicam 15 mg tablet 15 mg PO DAILY fluoxetine 40 mg capsule 40 mg PO DAILY sertraline 25 mg tablet 25 mg PO QDAY atorvastatin 20 mg tablet 20 mg PO BID Follow Up/Referrals: Bhupinder Arzola MD [Primary Care Provider] - Stand Alone Forms: [facility] Info Instructions
[2022-12-22] MEDS: MECLIZINE HCL 25 MG TABLET PO (10:52)
[2022-12-22] MEDS: dexAMETHasone 4 MG/ML VIAL 10 MG IV (12:37)
== END 2022-12-22 13:56 | disposition home or self-care (01) ==
PROVIDERS: Emergency Provider Emergency Medicine Emergency Medical Services; PCP Family Medicine
DX: H81.09 Meniere's disease, unspecified ear (principal)
CPT/HCPCS: 96374; 96375; 99283; 99284; A9270; J1100; J2405; J7030

== ENCOUNTER 2023-01-01 18:11 | Outpatient (REF) | payer OTHER, SELFPAY ==
[2023-01-01 20:27] LABS: Hepatitis B Surface Antigen* Negative (Negative)
[2023-01-01 20:38] LABS: HIV 1/2/P24 Combo Screen* Negative (Negative)
[2023-01-01 20:45] LABS: Hepatitis C Virus Antibody* Negative (Negative)
[2023-01-01 20:54] LABS: Hepatitis B Surface Antibody* Negative (Negative)
[2023-01-03 18:04] LABS: Hepatitis B Core Antibodies Negative (Negative)
[2023-01-04 00:51] LABS: Rapid Plasma Reagin (RPR) Reactive (Non Reactive)
[2023-01-06 00:03] LABS: Treponema pallidum AbTP-PA Reactive (Non Reactive)
== END 2023-01-01 18:12 | disposition home or self-care (01) ==
LOC: NPINS 18:11
PROVIDERS: PCP Family Medicine; Visit Provider Physician Assistant Medical
DX: A69.9 Spirochetal infection, unspecified (principal)
CPT/HCPCS: 86592; 86593; 86618; 86703; 86704; 86706; 86780; 86803; 87340

== ENCOUNTER 2023-08-12 09:27 | Outpatient (CLI) | payer OTHER, SELFPAY ==
--- OUTSIDE RECORDS SUMMARY | 2023-08-12 09:33 | XMS_ITS | Continuity of Care Document ---
Author Name Unknown Organization [facility] Address [address] [place] [address] [address] [place] [address] Phone Care Team Providers Care Space Operations Officer Name Role Phone Stone LICONA, Lucas Unavailable [...] Date Provider Providers Copied on Encounter [facility] [place], [address], [place], [address], [place] tel:[phone] 3569 [facility] No Information 2 Stone Zavala. [facility] [place], [address], [place], [place], [id number] , [place]. tel: [phone] [facility] [place], [address], [place], [address], [place] tel:[phone] [address] [place] [address] No Information 1 Tyler Yuri. [facility], [address], [address], [place], [place], [id number] , [place]. [phone] Referring Provider: Jordan Fang, [address], [address]. tel:[phone] [facility] [place], [address] [place], [place] [address] [address], [place], [address], [place] tel:[phone] [facility] No Information 1 Tyler Yuri. [facility], [address], [address], [place], [place], [address] , [place]. tel:[phone] Referring Provider: Jordan Fang, [address], [address]. tel:[phone] [facility] [place], [address] [place], [place] [address] [address], [place], [address], [place] tel:[phone] [address] [place] [address] No Information 1 Tyler Yuri. [facility] [place], [address], [address], [place], [place], [id number] , [place]. tel:[phone] Referring Provider: Jordan Fang, [address], [address]. tel:[phone] Office/outpat ient visit,est, mod [facility], [address], [place], [address], [place] tel:[phone] [facility] No Information 1 Tyler Yuri. [facility], [address] [place] [address], [address], [place], [place], [id number] , [place]. tel:[phone] Referring Provider: Jordan Fang, [address], [address]. tel:[phone] Office/outpat ient visit,new, mod [facility], [address], [place], [address], [place] tel:[phone] [facility] No Information 0 Tyler Yuri. [facility] [place], [address], [address], [place], [place], [id number] , [place]. tel:[phone] Referring Provider: Jordan Fang, [address], [address]. tel:[phone] Family History Family Member Type Diagnosis Age At Onset No Information Payers Payer name Insurance type Covered libertarian ID Authorraizaa prerna(s) [employer] [id number] Social History Type Description Quantity Date Captured [...]
== END 2023-08-12 09:28 | disposition home or self-care (01) ==
PROVIDERS: PCP Family Medicine; Visit Provider Family Medicine
DX: E78.5 Hyperlipidemia, unspecified (principal); I16.0 Hypertensive urgency; A53.9 Syphilis, unspecified
CPT/HCPCS: 80048; 80061; 84460; 86592; 86593; 86780

== ENCOUNTER 2024-01-20 09:05 | Outpatient (CLI) | payer OTHER, SELFPAY | END 2024-01-20 09:06 | disposition home or self-care (01) | PROVIDERS: PCP Family Medicine; Visit Provider Family Medicine | DX: Z00.00 Encounter for general adult medical examination without abnormal findings (principal); E78.2 Mixed hyperlipidemia; I10 Essential (primary) hypertension; R53.83 Other fatigue; Z13.9 Encounter for screening, unspecified | CPT/HCPCS: 80048; 80061; 84460; 85025; 86592 ==

== ENCOUNTER 2024-06-03 07:26 | Outpatient (CLI) | payer OTHER, SELFPAY | END 2024-06-03 07:27 | disposition home or self-care (01) | LOC: MAMMO 07:26 | PROVIDERS: PCP Family Medicine; Visit Provider Family Medicine | DX: Z12.31 Encounter for screening mammogram for malignant neoplasm of breast (principal) | CPT/HCPCS: 77063; 77067 ==

== ENCOUNTER 2024-12-03 12:20 | Emergency (ER) | payer OTHER, SELFPAY ==
[2024-12-03 12:22] VITALS: BP 236/127; PULSE 68; RESP 18; TEMP 37.6; O2SAT 98; BMI 28.0
--- NOTE | 2024-12-03 12:54 | CRLHL7_ITS ---
For Patients: As a result of the Century Cures Act, medical imaging exams and procedure reports are released immediately into your electronic medical record. You may view this report before your referring provider. If you have questions, please contact your health care provider. INDICATION: Headache, left facial tingling TECHNIQUE: CT head without contrast. COMPARISON: CT head 10/08/2022 FINDINGS: CSF spaces: Within normal limits for age. Brain parenchyma and extra-axial spaces: The perales-white differentiation is normal. No sign of mass, hemorrhage, or midline shift. No extra-axial fluid collection. Skull base and calvarium: Visualized sinuses are clear. Partial left mastoidectomy with moderate opacification of the remaining mastoid, as before. The visualized orbits are grossly unremarkable. No skull fractures. IMPRESSION: No acute intracranial abnormality. Sequela of prior partial left mastoidectomy. Please note that all CT scans at this facility use dose modulation, iterative reconstruction, and/or weight-based dosing when appropriate to reduce radiation dose to as low as reasonably achievable. Dictated by Lena Collins MD @ 12/03/2024 1:10:16 PM (Electronically Signed)
--- NOTE | 2024-12-03 12:59 | ED.GENADULT ---
HPI - General Adult General Chief complaint: Neuro Symptoms/Altered Deficit Stated complaint: Numbness L side face, headache, nausea Time Seen by Provider: 12/03/24 12:28 History of Present Illness HPI narrative: This 59-year-old female comes in with her . She states that she woke up this morning with a headache that she rates at 3/10 in severity. She also reports some blurry vision on the left eye and some tingling sensation in the left face. She does not report any other symptoms. She is not showing any sign of unilateral weakness. She states that she does not normally get headaches. She is on several antihypertensives and yet comes in with elevated blood pressure. She states that this can often happen when she is not feeling well. Related Data Home Medications ?Medication ?Instructions ?Recorded ?Confirmed aspirin 81 mg tablet,delayed 81 mg PO QDAY 11/17/21 11/11/24 release meloxicam 15 mg tablet 15 mg PO DAILY 12/18/21 11/11/24 gabapentin 300 mg capsule 300 mg PO QDAY PRN 01/20/24 11/11/24 meclizine 25 mg tablet 25 mg PO TID 01/20/24 11/11/24 Previous Rx's ?Medication ?Instructions ?Recorded tramadol 50 mg tablet 50 mg PO Q8H PRN pain #40 tabs 11/17/21 amlodipine 10 mg tablet 10 mg PO QDAY #90 tabs 05/15/22 hydralazine 25 mg tablet 50 mg (2 x 25 mg) PO TID #540 tabs 05/15/22 clonidine HCl 0.1 mg tablet 0.1 mg PO TID #270 tabs 09/11/22 furosemide 40 mg tablet 40 mg PO QDAY #90 tabs 07/24/23 lisinopril 40 mg tablet 40 mg PO DAILY #90 tabs 07/24/23 spironolactone 25 mg tablet 25 mg PO QDAY #90 tabs 07/24/23 albuterol sulfate 90 mcg/actuation 2 puff inhalation Q6H PRN Asthma 07/25/23 aerosol inhaler #8.5 grams atorvastatin 40 mg tablet 40 mg PO DAILY #90 tabs 07/25/23 ondansetron HCl 8 mg tablet 8 mg PO BID PRN nausea and 05/18/24 vomiting #30 tabs bupropion HCl 300 mg 24 hr tablet, 300 mg PO DAILY #90 tabs 07/07/24 extended release semaglutide (weight loss) 2.4 2.4 mg (0.75 mL) subcut QWEEK #9 mL 08/09/24 mg/0.75 mL subcutaneous pen injector ketorolac 10 mg tablet 10 mg PO TID 5 days #15 tabs 12/03/24 meclizine 25 mg tablet 25 mg PO QID #20 tabs 12/03/24 methylprednisolone 4 mg tablets in See Rx Instructions PO .COMPLEX 12/03/24 a dose pack (Medrol (Andrez)) #21 ea ondansetron HCl 4 mg tablet 4 mg PO Q6H #10 tabs 12/03/24 Allergies Allergy/AdvReac Type Severity Reaction Status Date / Time morphine Allergy Severe angioedema Verified 12/03/24 12:29 losartan Allergy Mild Flushing Verified 12/03/24 12:29 oxycodone Allergy Mild Nausea Verified 12/03/24 12:29 ceftriaxone Allergy Unknown Hives Verified 12/03/24 12:29 Review of Systems Status of ROS: Reports: 10 or more systems reviewed and unremarkable except as noted in History and below Narrative: Constitutional: No fevers. She reports intentional large weight loss and is walking 10 miles a day. Eyes: No discharge. Blurry vision in the left eye. HENT: No congestion, no sore throat, no ear pain. Cardiovascular: No chest pain, no palpitations. Respiratory: No shortness of breath, no wheezes, no cough. Gastrointestinal: No abdominal pain, no vomiting, no diarrhea. Genitourinary: No dysuria, no hematuria. Musculoskeletal: Normal range of motion. Skin: No rashes, no pruritis. Neurological: No dizziness, weakness, speech change. Tingling sensation in her face. Endo/Heme/Allergies: No bruising or bleeding. No polydipsia. Pysch: no suicidality, no anxiety, no insomnia. All other systems reviewed and are negative. [facility] Medical History (Updated 12/03/24 @ 14:17 by Callum Zapien MD) Mixed hyperlipidemia ?E78.2 - Mixed hyperlipidemia (ICD-10) Acquired syphilis ?A53.9 - Syphilis, unspecified (ICD-10) VINNY (generalized anxiety disorder) ?F41.1 - Generalized anxiety disorder (ICD-10) Major depression, chronic ?F32.9 - Major depressive disorder, single episode, unspecified (ICD-10) Severe hypertension ?I10 - Essential (primary) hypertension (ICD-10) Mild intermittent asthma ?J45.20 - Mild intermittent asthma, uncomplicated (ICD-10) Schatzki's ring of distal esophagus ?K22.2 - Esophageal obstruction (ICD-10) Rosacea ?L71.9 - Rosacea, unspecified (ICD-10) Presence of cardiac pacemaker ?Z95.0 - Presence of cardiac pacemaker (ICD-10) Obstruction of esophagus due to food impaction ?K22.2 - Esophageal obstruction (ICD-10) ?T18.128A - Food in esophagus causing other injury, initial encounter (ICD-10) Hypertensive urgency (05/2019) ?I16.0 - Hypertensive urgency (ICD-10) History of vitamin D deficiency ?Z86.39 - Personal history of other endocrine, nutritional and metabolic disease (ICD-10) History of suicide attempt (04/2013) ?Z91.51 - Personal history of suicidal behavior (ICD-10) History of squamous cell carcinoma of skin (01/25/15) ?Z85.828 - Personal history of other malignant neoplasm of skin (ICD-10) History of Meniere's disease (2008) ?Z86.69 - Personal history of other diseases of the nervous system and sense organs (ICD-10) History of hydronephrosis (12/02/14) ?Z87.448 - Personal history of other diseases of urinary system (ICD-10) History of esophageal dilatation (2001) ?Z98.890 - Other specified postprocedural states (ICD-10) Gastroesophageal reflux disease ?K21.9 - Gastro-esophageal reflux disease without esophagitis (ICD-10) Fracture of distal end of fibula ?S82.839A - Other fracture of upper and lower end of unspecified fibula, initial encounter for closed fracture (ICD-10) Branch retinal vein occlusion of left eye (2009) ?H34.8322 - Tributary (branch) retinal vein occlusion, left eye, stable (ICD-10) Surgical History (Updated 04/18/23 @ 11:07 by Rebecca Urias ~ VIDEOTAPE OPERATOR, VIDEOTAPE OPERATOR) Status post dilation of esophageal narrowing ?Z98.890 - Other specified postprocedural states (ICD-10) ?Z87.19 - Personal history of other diseases of the digestive system (ICD-10) History of ureterostomy (1985) ?Z98.890 - Other specified postprocedural states (ICD-10) History of radiofrequency ablation (RFA) procedure for cardiac arrhythmia (06/2011) ?Z98.890 - Other specified postprocedural states (ICD-10) History of lumbar fusion (2010) ?Z98.1 - Arthrodesis status (ICD-10) History of hysterectomy (2000) ?Z90.710 - Acquired absence of both cervix and uterus (ICD-10) History of foot surgery (1986) ?Z98.890 - Other specified postprocedural states (ICD-10) History of esophagogastroduodenoscopy (EGD) (2010) ?Z98.890 - Other specified postprocedural states (ICD-10) History of dilation and curettage ?Z98.890 - Other specified postprocedural states (ICD-10) History of cholecystectomy (2013) ?Z90.49 - Acquired absence of other specified parts of digestive tract (ICD-10) History of 3 sections ?Z98.891 - History of uterine scar from previous surgery (ICD-10) Family History (Updated 11/15/22 @ 09:26 by Kayla Randolph MD) Other Adopted person Social History (Updated 01/20/24 @ 13:56 by Charley Tuttle ~ A, A) Narrative: Does not drink alcohol Does not have regular exercise regimen , dispatcher [employer], 3 kids Non-smoker What is your current living situation?: I presently have a place to live Problems where you live: no known problems In the past 12 months, utilities in danger of being shut off: no In past 12 months, lack of transportation kept you from medical appts, meetings, work, or getting things needed for daily living: no In the past 12 mos, have been you worried that your food would run out before you had money to buy more?: never true In the past 12 mos, the food you bought just didn't last and you didn't have money to buy more?: never true Smoking Status: Never smoker Do you use any of these nicotine containing products: None Second hand tobacco smoke exposure: No How often do you have a drink containing alcohol: never AUDIT-C Alcohol total score: 0 Non-prescribed substance use: denies use How often does anyone, including family, friends and others, physically hurt you: never How often does anyone, including family, friends and others, insult or talk down to you: never How often does anyone, including family, friends and others, threaten you with harm: never How often does anyone, including family, friends and others, scream or curse at you: rarely service: No Health Related Social Needs: Other personal risk factors, not elsewhere classified (Z91.89) Exam Narrative: Exam Narrative: Constitutional: Well-developed, well-nourished, no acute distress. HEENT: Normocephalic, atraumatic. Neck: Normal range of motion. Nontender. Supple. Heart: Regular. No murmurs. Normal rate. Intact distal pulses. Lungs: Clear to auscultation. No chest discomfort. No wheezes, rhonchi, or rales. Abdomen: Normal bowel sounds. Nontender. No rebound tenderness. Genitalia: Deferred. Back: No midline tenderness. Normal range of motion. Extremities: Normal range of motion. No injury. Skin: Intact. No rash. Warm. No erythema or pallor. Neurologic: No altered sensation. No weakness. Alert and oriented. No facial asymmetry. Tongue is midline. [id number] is normal. No pronator drift. Postal Worker strength is equal bilaterally. Able to raise each leg from the bed. Psychiatric: No suicidality. No anxiety or depression. No insomnia. Nursing notes and vitals signs are reviewed. Const: Vital Signs, click to edit/add: Vital Signs - 24 hr 12/03/24 12:22 Temperature 99.6 F Pulse Rate [Right Pulse Oximeter] 68 Respiratory Rate 18 Blood Pressure [Ri ght Upper Arm] 236/127 H Pulse Oximetry 98 Oxygen Delivery Me thod Room Air Course Vital Signs Vital signs: Initial Vital Signs Temperature 99.6 F 12/03/24 12:22 Temperature Source Temporal Artery Scan 12/03/24 12:22 Pulse Rate 68 12/03/24 12:22 Pulse Rhythm Regular 12/03/24 12:22 Pulse Strength 3+ Normal 12/03/24 12:22 Respiratory Rate 18 12/03/24 12:22 Blood Pressure 236/127 H 12/03/24 12:22 Blood Pressure Mean 163 H 12/03/24 12:22 Blood Pressure Position Sitting 12/03/24 12:22 Pulse Oximetry 98 12/03/24 12:22 Oxygen Delivery Method Room Air 12/03/24 12:22 Vital Signs Temperature 99.6 F 12/03/24 12:22 Pulse Rate 68 12/03/24 12:22 Respiratory Rate 18 12/03/24 12:22 Blood Pressure 236/127 H 12/03/24 12:22 Pulse Oximetry 98 12/03/24 12:22 Oxygen Delivery Method Room Air 12/03/24 12:22 Temperature 99.6 F 12/03/24 12:22 Pulse Rate 68 12/03/24 12:22 Respiratory Rate 18 12/03/24 12:22 Blood Pressure 236/127 H 12/03/24 12:22 Pulse Oximetry 98 12/03/24 12:22 Oxygen Delivery Method Room Air 12/03/24 12:22 Medications Administered Medications: Discontinued Medications Generic Name Dose Route Start Last Admin Trade Name Efren PRN Reason Stop Dose Admin Ketorolac Tromethamine 10 mg 12/03/24 12:54 12/03/24 13:32 Ketorolac 10 Mg Tablet PO 12/03/24 12:55 10 mg ONCE ONE Administration Meclizine HCl 25 mg 12/03/24 12:54 12/03/24 13:32 Meclizine Hcl 25 Mg Tablet PO 12/03/24 12:55 25 mg ONCE ONE Administration Ondansetron HCl 4 mg 12/03/24 12:54 12/03/24 13:08 Ondansetron Odt 4 Mg Tab PO 12/03/24 12:55 4 mg ONCE ONE Administration Medical Decision Making [facility] Narrative Medical decision making narrative: This patient comes in reporting his headache that is 3/10 in severity. She also has some tingling in her face and reports some vertigo symptoms. Her neurologic exam is completely normal. I did obtain CT scan of her head and labs and these all returned with reassuring results. The patient did receive oral doses of Toradol, Zofran, and meclizine. This has helped improve her symptoms. It seems that these symptoms are possibly due to a migraine type of syndrome. She is okay to be discharged home. I did provide prescriptions for Medrol Dosepak, Toradol, Zofran, and meclizine. I did describe signs and symptoms that would indicate need for return re-evaluation. Lab Data Labs: Lab Results 12/03/24 Range/Units 13:13 WBC 9.20 (4.50-11.00) K/uL RBC 5.05 (4.00-5.20) m/uL Hgb 15.1 (12.0-16.0) gm/dL Hct 44.8 (33.0-51.0) % MCV 89 (80-100) fL MCH 30 (26-34) pg MCHC 34 (32-36) gm/dL RDW Coeff of Tricia 12.3 (11.5-15.5) % Plt Count 329 (140-440) K/uL Neut % (Auto) 55.6 (42.0-72.0) % Lymph % (Auto) 32.5 (20-44) % [place] % (Auto) 6.2 (0.0-11.0) % Eos % (Auto) 4.5 (0.0-7.0) % Baso % (Auto) 1.0 (0.0-3.0) % Neut # (Auto) 5.12 (1.7-7.0) K/uL Lymph # (Auto) 2.99 H (0.90-2.90) K/uL [place] # (Auto) 0.60 (0.00-0.90) K/UL Eos # (Auto) 0.41 (0.00-0.50) K/uL Baso # (Auto) 0.09 (0.00-0.30) K/uL Abs Immat Gran (auto) 0.02 (0.00-0.30) K/uL Imm/Tot Granulo (auto) 0.2 % Sodium 140 (135-149) mmol/L Potassium 3.8 (3.6-5.1) mmol/L Chloride 103 (96-114) mmol/L Carbon Dioxide 30 (20-32) mmol/L Anion Gap 7 (7-15) mEq/L BUN 13 (7-30) mg/dL Creatinine 0.8 (0.5-1.5) mg/dL Estimated Creat Clear 68.97 Estimated GFR 85 ml/min Glucose 91 (60-115) mg/dL Calcium 10.0 (8.4-10.6) mg/dL Imaging Data CT scan - head: Radiologist's impression: No acute intracranial abnormality. Discharge Plan Discharge Clinical Impression: Migraine Patient Disposition: Home w/ Parent or Adult Condition: Improved Additional Instructions: Take medication as prescribed. Follow up with MD return if worsening symptoms occur. Prescriptions: New ondansetron HCl 4 mg tablet 4 mg PO Q6H Qty: 10 0RF ketorolac 10 mg tablet 10 mg PO TID 5 Days Qty: 15 0RF meclizine 25 mg tablet 25 mg PO QID Qty: 20 0RF methylprednisolone [Medrol (Andrez)] 4 mg tablets,dose pack See Rx Instructions .ROUTE .COMPLEX Qty: 21 0RF Rx Instructions: orally per package directions No Action amlodipine 10 mg tablet 10 mg PO QDAY Qty: 90 3RF hydralazine 25 mg tablet 50 mg PO TID Qty: 540 3RF clonidine HCl 0.1 mg tablet 0.1 mg PO TID Qty: 270 3RF ondansetron HCl 8 mg tablet 8 mg PO BID PRN (Reason: nausea and vomiting) Qty: 30 1RF aspirin 81 mg tablet,delayed release (DR/EC) 81 mg PO QDAY tramadol 50 mg tablet 50 mg PO Q8H PRN (Reason: pain) Qty: 40 0RF meloxicam 15 mg tablet 15 mg PO DAILY gabapentin 300 mg capsule 300 mg PO QDAY PRN meclizine 25 mg tablet 25 mg PO TID furosemide 40 mg tablet 40 mg PO QDAY Qty: 90 0RF lisinopril 40 mg tablet 40 mg PO DAILY Qty: 90 0RF spironolactone 25 mg tablet 25 mg PO QDAY Qty: 90 0RF albuterol sulfate 90 mcg/actuation HFA aerosol inhaler 2 puff inhalation Q6H PRN (Reason: Asthma) Qty: 8.5 0RF atorvastatin 40 mg tablet 40 mg PO DAILY Qty: 90 0RF bupropion HCl 300 mg tablet extended release 24 hr 300 mg PO DAILY Qty: 90 1RF semaglutide (weight loss) 2.4 mg/0.75 mL pen injector 2.4 mg subcut QWEEK Qty: 9 0RF Follow Up/Referrals: Bhupinder Arzola MD [Primary Care Provider, Family Practice] Stand Alone Forms: [email or web address] Info Instructions
[2024-12-03] MEDS: ONDANSETRON ODT 4 MG TAB PO (13:08)
[2024-12-03 13:31] LABS: Hematocrit 44.8 % (33.0-51.0); Hemoglobin* 15.1 gm/dL (12.0-16.0); Immature Granulocytes Abs Auto 0.02 K/uL (0.00-0.30); Immature Granulocytes Pct Auto 0.2 %; Lymphocytes Absolute Auto 2.99 K/uL (0.90-2.90); Mean Corpuscular HGB Conc 34 gm/dL (32-36); Mean Corpuscular Hemoglobin 30 pg (26-34); Mean Corpuscular Volume 89 fL (80-100); RDW Coefficient of Variation % 12.3 % (11.5-15.5); Red Blood Count 5.05 m/uL (4.00-5.20); White Blood Count* 9.20 K/uL (4.50-11.00)
[2024-12-03] MEDS: KETOROLAC 10 MG TABLET PO (13:32)
[2024-12-03] MEDS: MECLIZINE HCL 25 MG TABLET PO (13:32)
--- NOTE | 2024-12-03 13:35 | PC.NURSE ---
toradol and meclizine given, pt resting, PLUMMER pain 4 of 10 now, lights lowered and door closed to reduce noises, pt on continuous monitoring and call light in reach
[2024-12-03 13:36] LABS: Slide Review Reflex No
[2024-12-03 13:44] LABS: Chloride* 103 mmol/L (96-114)
[2024-12-03 13:45] LABS: Potassium* 3.8 mmol/L (3.6-5.1); Sodium* 140 mmol/L (135-149)
[2024-12-03 13:48] LABS: Blood Urea Nitrogen* 13 mg/dL (7-30); Calcium* 10.0 mg/dL (8.4-10.6); Carbon Dioxide* 30 mmol/L (20-32); Creatinine* 0.8 mg/dL (0.5-1.5); Est. Creatinine Clearance* 68.97; Estimated Glomerular Filt Rate 85 ml/min; Glucose* 91 mg/dL (60-115)
[2024-12-03 13:50] LABS: Anion Gap 7 mEq/L (7-15)
== END 2024-12-03 14:27 | disposition home or self-care (01) ==
PROVIDERS: Emergency Provider Emergency Medicine Emergency Medical Services; PCP Family Medicine
DX: G43.909 Migraine, unspecified, not intractable, without status migrainosus (principal); Z79.899 Other long term (current) drug therapy
CPT/HCPCS: 36415; 70450; 80048; 85025; 99284; A9270

== ENCOUNTER 2025-04-10 23:37 | Emergency (ER) | payer OTHER, SELFPAY ==
[2025-04-10 23:39] VITALS: BP 221/115; PULSE 72; RESP 16; TEMP 37.4; O2SAT 99; BMI 29.4
--- NOTE | 2025-04-10 23:54 | ED.BACK ---
HPI - Back Pain/Injury General Time Seen by Provider: 23:54 Date Seen: 04/10/25 Chief Complaint: Flank Pain Stated Complaint: Pain in lower back Time Seen by Provider: 04/10/25 23:54 Source: patient Mode of arrival: ambulatory History of Present Illness HPI Narrative: Pamela is a 59 yo female has a past medical history of depression, anxiety, hypertension, asthma, lumbar radiculopathy who presents emergency department for evaluation of low back pain/flank pain. Patient complains of low back pain/flank pain that started yesterday while at work. 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 Patient denies any trauma, injury. Denies any recent falls or heavy lifting. Patient describes the pain as a constant pressure leg balloon like pain with no radiation. Patient reports that pain seems to worsen when sitting and better with moving around. Patient has history of kidney stones however states that this feels different. Patient denies any fever, chills, chest pain, shortness of breath, abdominal pain, dysuria, hematuria. Patient reports nausea but no vomiting. No bowel or urinary incontinence/retention, no history of cancer, no history of IV drug use No other complaints. No medications prior to arrival. Related Data Home Medications ?Medication ?Instructions ?Recorded ?Confirmed aspirin 81 mg tablet,delayed 81 mg PO QDAY 11/17/21 11/11/24 release meloxicam 15 mg tablet 15 mg PO DAILY 12/18/21 11/11/24 gabapentin 300 mg capsule 300 mg PO QDAY PRN 01/20/24 11/11/24 meclizine 25 mg tablet 25 mg PO TID 01/20/24 11/11/24 Previous Rx's ?Medication ?Instructions ?Recorded tramadol 50 mg tablet 50 mg PO Q8H PRN pain #40 tabs 11/17/21 amlodipine 10 mg tablet 10 mg PO QDAY #90 tabs 05/15/22 hydralazine 25 mg tablet 50 mg (2 x 25 mg) PO TID #540 tabs 05/15/22 clonidine HCl 0.1 mg tablet 0.1 mg PO TID #270 tabs 09/11/22 furosemide 40 mg tablet 40 mg PO QDAY #90 tabs 07/24/23 lisinopril 40 mg tablet 40 mg PO DAILY #90 tabs 07/24/23 spironolactone 25 mg tablet 25 mg PO QDAY #90 tabs 07/24/23 albuterol sulfate 90 mcg/actuation 2 puff inhalation Q6H PRN Asthma 07/25/23 aerosol inhaler #8.5 grams atorvastatin 40 mg tablet 40 mg PO DAILY #90 tabs 07/25/23 ondansetron HCl 8 mg tablet 8 mg PO BID PRN nausea and 05/18/24 vomiting #30 tabs bupropion HCl 300 mg 24 hr tablet, 300 mg PO DAILY #90 tabs 07/07/24 extended release ketorolac 10 mg tablet 10 mg PO TID 5 days #15 tabs 12/03/24 meclizine 25 mg tablet 25 mg PO QID #20 tabs 12/03/24 methylprednisolone 4 mg tablets in See Rx Instructions PO .COMPLEX 12/03/24 a dose pack (Medrol (Andrez)) #21 ea ondansetron HCl 4 mg tablet 4 mg PO Q6H #10 tabs 12/03/24 semaglutide (weight loss) 2.4 2.4 mg (0.75 mL) subcut QWEEK #9 mL 12/22/24 mg/0.75 mL subcutaneous pen injector Allergies Allergy/AdvReac Type Severity Reaction Status Date / Time morphine Allergy Severe angioedema Verified 04/10/25 23:46 losartan Allergy Mild Flushing Verified 04/10/25 23:46 oxycodone Allergy Mild Nausea Verified 04/10/25 23:46 ceftriaxone Allergy Unknown Hives Verified 04/10/25 23:46 Review of Systems Narrative: Past medical history, past surgical history, medications, allergies, family history, and social history were reviewed with the patient. No additional pertinent items. A medically appropriate review of systems was performed with pertinent positives and negatives noted in HPI, all other systems negative. [facility] Medical History (Updated 04/11/25 @ 02:18 by Estephania Gutierrez MD) Mixed hyperlipidemia ?E78.2 - Mixed hyperlipidemia (ICD-10) Acquired syphilis ?A53.9 - Syphilis, unspecified (ICD-10) VINNY (generalized anxiety disorder) ?F41.1 - Generalized anxiety disorder (ICD-10) Major depression, chronic ?F32.9 - Major depressive disorder, single episode, unspecified (ICD-10) Severe hypertension ?I10 - Essential (primary) hypertension (ICD-10) Mild intermittent asthma ?J45.20 - Mild intermittent asthma, uncomplicated (ICD-10) Schatzki's ring of distal esophagus ?K22.2 - Esophageal obstruction (ICD-10) Rosacea ?L71.9 - Rosacea, unspecified (ICD-10) Presence of cardiac pacemaker ?Z95.0 - Presence of cardiac pacemaker (ICD-10) Obstruction of esophagus due to food impaction ?K22.2 - Esophageal obstruction (ICD-10) ?T18.128A - Food in esophagus causing other injury, initial encounter (ICD-10) Hypertensive urgency (05/2019) ?I16.0 - Hypertensive urgency (ICD-10) History of vitamin D deficiency ?Z86.39 - Personal history of other endocrine, nutritional and metabolic disease (ICD-10) History of suicide attempt (04/2013) ?Z91.51 - Personal history of suicidal behavior (ICD-10) History of squamous cell carcinoma of skin (01/25/15) ?Z85.828 - Personal history of other malignant neoplasm of skin (ICD-10) History of Meniere's disease (2008) ?Z86.69 - Personal history of other diseases of the nervous system and sense organs (ICD-10) History of hydronephrosis (12/02/14) ?Z87.448 - Personal history of other diseases of urinary system (ICD-10) History of esophageal dilatation (2001) ?Z98.890 - Other specified postprocedural states (ICD-10) Gastroesophageal reflux disease ?K21.9 - Gastro-esophageal reflux disease without esophagitis (ICD-10) Fracture of distal end of fibula ?S82.839A - Other fracture of upper and lower end of unspecified fibula, initial encounter for closed fracture (ICD-10) Branch retinal vein occlusion of left eye (2009) ?H34.8322 - Tributary (branch) retinal vein occlusion, left eye, stable (ICD-10) Surgical History (Updated 04/18/23 @ 11:07 by Rebecca Urias ~ DETACKER, DETACKER) Status post dilation of esophageal narrowing ?Z98.890 - Other specified postprocedural states (ICD-10) ?Z87.19 - Personal history of other diseases of the digestive system (ICD-10) History of ureterostomy (1985) ?Z98.890 - Other specified postprocedural states (ICD-10) History of radiofrequency ablation (RFA) procedure for cardiac arrhythmia (06/2011) ?Z98.890 - Other specified postprocedural states (ICD-10) History of lumbar fusion (2010) ?Z98.1 - Arthrodesis status (ICD-10) History of hysterectomy (2000) ?Z90.710 - Acquired absence of both cervix and uterus (ICD-10) History of foot surgery (1986) ?Z98.890 - Other specified postprocedural states (ICD-10) History of esophagogastroduodenoscopy (EGD) (2010) ?Z98.890 - Other specified postprocedural states (ICD-10) History of dilation and curettage ?Z98.890 - Other specified postprocedural states (ICD-10) History of cholecystectomy (2013) ?Z90.49 - Acquired absence of other specified parts of digestive tract (ICD-10) History of 3 sections ?Z98.891 - History of uterine scar from previous surgery (ICD-10) Family History (Updated 11/15/22 @ 09:26 by Kayla Randolph MD) Other Adopted person Social History (Updated 01/20/24 @ 13:56 by Charley Tuttle ~ RMA, RMA) Narrative: Does not drink alcohol Does not have regular exercise regimen , dispatcher [employer], 3 kids Non-smoker What is your current living situation?: I presently have a place to live Problems where you live: no known problems In the past 12 months, utilities in danger of being shut off: no In past 12 months, lack of transportation kept you from medical appts, meetings, work, or getting things needed for daily living: no In the past 12 mos, have been you worried that your food would run out before you had money to buy more?: never true In the past 12 mos, the food you bought just didn't last and you didn't have money to buy more?: never true Smoking Status: Never smoker Do you use any of these nicotine containing products: None Second hand tobacco smoke exposure: No How often do you have a drink containing alcohol: never AUDIT-C Alcohol total score: 0 Non-prescribed substance use: denies use How often does anyone, including family, friends and others, physically hurt you: never How often does anyone, including family, friends and others, insult or talk down to you: never How often does anyone, including family, friends and others, threaten you with harm: never How often does anyone, including family, friends and others, scream or curse at you: rarely service: No Health Related Social Needs: Other personal risk factors, not elsewhere classified (Z91.89) Exam Narrative: Exam Narrative: General: Afebrile, in distress secondary to pain, standing up in the room pacing/swaying side to side HEENT: Normocephalic, atraumatic, conjunctiva normal. MMM Neck: non-tender, supple Cardio: regular rate. regular rhythm Resp: Normal work of breathing, no respiratory distress, lungs clear bilaterally, no wheezing, rhonchi, rales Chest/Back: no visual signs of trauma, no midline tenderness, no CVA tenderness, no significant tenderness to palpation lumbar spine or SI joint. Patient does report pain across her entire lower lumbar region Abdomen: soft, non distension, no tenderness, no peritoneal signs Neuro: alert and fully oriented. CN II-XII grossly intact. Normal strength and sensation in all extremities. MSK: no deformities. Normal range of motion Integumentary/Skin: no rash visualized, normal color Psych: normal affect, normal behavior Const: Vital Signs, click to edit/add: Vital Signs - 24 hr 04/10/25 23:39 04/11/25 00:37 04/11/25 00:57 Temperature 99.4 F Pulse Rate 68 Pulse Rate [Pulse Oximeter] 72 Respiratory Rate 16 16 Blood Pressure 228/118 H 187/96 H Blood Pressure [Ri ght Upper Arm] 221/115 H Pulse Oximetry 99 98 Oxygen Delivery Me thod Room Air Room Air Course Vital Signs Vital signs: Initial Vital Signs Temperature 99.4 F 04/10/25 23:39 Temperature Source Temporal Artery Scan 04/10/25 23:39 Pulse Rate 72 04/10/25 23:39 Respiratory Rate 16 04/10/25 23:39 Blood Pressure 221/115 H 04/10/25 23:39 Blood Pressure Mean 150 H 04/10/25 23:39 Pulse Oximetry 99 04/10/25 23:39 Oxygen Delivery Method Room Air 04/10/25 23:39 Vital Signs Temperature 99.4 F 04/10/25 23:39 Pulse Rate 72 04/10/25 23:39 Respiratory Rate 16 04/10/25 23:39 Blood Pressure 221/115 H 04/10/25 23:39 Pulse Oximetry 99 04/10/25 23:39 Oxygen Delivery Method Room Air 04/10/25 23:39 Temperature 99.4 F 04/10/25 23:39 Pulse Rate 68 04/11/25 00:37 Respiratory Rate 16 04/11/25 00:37 Blood Pressure 187/96 H 04/11/25 00:57 Pulse Oximetry 98 04/11/25 00:37 Oxygen Delivery Method Room Air 04/11/25 00:37 Medications Administered Medications: Discontinued Medications Generic Name Dose Route Start Last Admin Trade Name Freq PRN Reason Stop Dose Admin Ketorolac Tromethamine 15 mg 04/11/25 00:03 04/11/25 00:35 Ketorolac 15 Mg/Ml Inj IVP 04/11/25 00:04 15 mg ONCE ONE Administration MDM - Back Pain/Injury MDM Narrative Medical decision making narrative: Pamela is a 59 yo female has a past medical history of depression, anxiety, hypertension, asthma, lumbar radiculopathy who presents emergency department for evaluation of low back pain/flank pain. Upon arrival patient is nontoxic appearing, afebrile, in distress secondary to pain. Patient here with low back pain worsening x2 days. Denies any trauma, afebrile, no red flags, no urinary or bowel incontinence/retention, no history of cancer, no history of IV drug use. No medications prior to arrival. Differential diagnosis includes but is not limited to musculoskeletal versus sciatica versus lumbar radiculopathy versus lumbar sacral strain versus cystitis versus pyelonephritis versus nephrolithiasis among others. Upon arrival patient was treated with IV Toradol. Patient declined any additional/stronger pain medicines at this time. I personally reviewed and interpreted CT imaging. CT scan of the abdomen pelvis with no acute findings. Few punctate nonobstructing bilateral nephroliths. No evidence of obstructive uropathy. I personally reviewed and interpreted CT of the lumbar spine which demonstrates no acute abnormality of the lumbar spine. Intact L4-L5 posterior fusion hardware. I discussed results with patient. Overall ED workup reassuring with no evidence of acute infection, no evidence of ureteral stone, no evidence of acute fracture, subluxation, loosening hardware. At this time recommend continue supportive care for acute low back pain. Recommend conservative measurements with pain control with Tylenol, ibuprofen, lidocaine patch, and close outpatient follow-up with her primary care provider. If no improvement of symptoms would consider MRI specially given history of surgical intervention. Patient was discharged with a short course of tramadol (states she has tolerated this in the past) in case severe pain at home. Strict return precautions discussed. Patient understands and agrees with this plan. Medical Records Attestation: I reviewed the patient's medical records. Lab Data Attestation: I reviewed the patient's lab results. Labs: Lab Results 04/11/25 Range/Units 00:09 Urine Color Yellow (Yellow) Urine Appearance Clear (Clear) Urine pH 6.5 (5.0-8.5) Ur Specific Kramer 1.020 (1.000-1.030) Urine Protein Trace A (Negative) Urine Glucose (UA) Negative (Negative) Urine Ketones Negative (Negative) Urine Blood Negative (Negative) Urine Nitrite Negative (Negative) Urine Bilirubin Negative (Negative) Urine Urobilinogen 0.2 (0.2-1.0) Ur Leukocyte Esterase 1+ A (Negative) Urine RBC 0-2 (0-2) Urine WBC 2-5 (0-5) Ur Squamous Epith Cells None (None-Few) Urine Bacteria Few A (None) Imaging Data CT scan - abdomen: Attestation: I have reviewed the pertinent imaging results. Radiologist's impression: Patient: Pamela Szymanski MR#: [id number] : 1965 Acct:[id number] Loc: ED Service Date: 04/11/[address]: Ordering Physician: Estephania Gutierrez M.D. Date of Service: 04/11/25 Procedure(s): CT abdomen pelvis wo con Accession Number(s): [id number] cc: Estephania Gutierrez M.D.; Bhupinder Arzola M.D.~ For Patients: As a result of the Century Cures Act, medical imaging exams and procedure reports are released immediately into your electronic medical record. You may view this report before your referring provider. If you have questions, please contact your health care provider. INDICATION: Low back pain. TECHNIQUE: CT abdomen and pelvis without contrast. COMPARISON: None. FINDINGS: Lower chest: Unremarkable. Liver: Normal in size and attenuation. No suspicious masses. Gallbladder and bile ducts: Status post cholecystectomy. No abnormal biliary ductal dilatation. Pancreas: Unremarkable. No mass or inflammation. Spleen: Normal in size. No masses. Adrenal glands: Normal in size. No nodules. Kidneys: Few punctate nonobstructing bilateral nephroliths. Right extrarenal pelvis. No hydronephrosis. GI tract: Unremarkable. Normal in caliber. No sign of mass or inflammation. Normal appendix. Vasculature: Normal caliber abdominal aorta with mild atherosclerotic calcification. Lymph nodes: No lymphadenopathy. Peritoneum/Abdominal Wall: Unremarkable. No free air or significant free fluid. Pelvis: Status post hysterectomy. Bones: L4-5 posterior fusion. Otherwise, unremarkable for age. IMPRESSION: No acute findings within the abdomen and pelvis. Few punctate nonobstructing bilateral nephroliths. No evidence for obstructive uropathy. Please note that all CT scans at this facility use dose modulation, iterative reconstruction, and/or weight-based dosing when appropriate to reduce radiation dose to as low as reasonably achievable. Dictated by Guru Chowdhury MD @ 04/11/2025 12:43:08 AM (Electronically Signed) ct lumbar: Attestation: I have reviewed the pertinent imaging results. Radiologist's impression: Patient: Pamela Szymanski MR#: [id number] : 1965 Acct:[id number] Loc: ED Service Date: 04/11/[address]: Ordering Physician: Estephania Gutierrez M.D. Date of Service: 04/11/25 Procedure(s): CT lumbar spine wo con Accession Number(s): [id number] cc: Estephania Gutierrez M.D.; Bhupinder Arzola M.D.~ For Patients: As a result of the Century Cures Act, medical imaging exams and procedure reports are released immediately into your electronic medical record. You may view this report before your referring provider. If you have questions, please contact your health care provider. INDICATION: Low back pain. TECHNIQUE: CT lumbar spine without contrast. COMPARISON: CT abdomen and pelvis from the same day. FINDINGS: L4-5 posterior fusion. No evidence for hardware loosening or fracture. Small marginal osteophytes at all levels; however, the intervertebral disc spaces at the non fused levels are maintained. No acute fracture or traumatic subluxation. The facet joints are unremarkable. Right-sided extrarenal pelvis with surgical clips about the right proximal ureter. The soft tissues are otherwise unremarkable. IMPRESSION: No acute bony abnormality of the lumbar spine. Intact L4-5 posterior fusion hardware. Please note that all CT scans at this facility use dose modulation, iterative reconstruction, and/or weight-based dosing when appropriate to reduce radiation dose to as low as reasonably achievable. Dictated by Guru Chowdhury MD @ 04/11/2025 12:49:05 AM (Electronically Signed) Discharge Plan Discharge Clinical Impression: Acute low back pain Patient Disposition: Home, Self-Care Condition: Improved Instructions: Acute Low Back Pain (ED) Additional Instructions: Please follow-up with your primary care provider in the next 3-5 days for further evaluation and follow-up. Please call to schedule appointment. Please apply ice/heat for comfort. You may try it lidocaine patch (12 hours on, 12 hours off), continue Tylenol 1000 mg every 6 hours alternating with ibuprofen 600 mg every 6 hours (so you can take something every 3 hours if you alternate these medications). Please take tramadol 1 tablet every 6 hours as needed for severe pain. Please be cautious not to drink alcohol or drive while on this medication. Please do activities as tolerated. Return to the emergency department if any worsening symptoms. It was a pleasure taking care of you today. We hope you feel better soon. Prescriptions: No Action amlodipine 10 mg tablet 10 mg PO QDAY Qty: 90 3RF hydralazine 25 mg tablet 50 mg PO TID Qty: 540 3RF clonidine HCl 0.1 mg tablet 0.1 mg PO TID Qty: 270 3RF ondansetron HCl 8 mg tablet 8 mg PO BID PRN (Reason: nausea and vomiting) Qty: 30 1RF aspirin 81 mg tablet,delayed release (DR/EC) 81 mg PO QDAY tramadol 50 mg tablet 50 mg PO Q8H PRN (Reason: pain) Qty: 40 0RF meloxicam 15 mg tablet 15 mg PO DAILY gabapentin 300 mg capsule 300 mg PO QDAY PRN meclizine 25 mg tablet 25 mg PO TID ondansetron HCl 4 mg tablet 4 mg PO Q6H Qty: 10 0RF ketorolac 10 mg tablet 10 mg PO TID 5 Days Qty: 15 0RF meclizine 25 mg tablet 25 mg PO QID Qty: 20 0RF methylprednisolone [Medrol (Andrez)] 4 mg tablets,dose pack See Rx Instructions .ROUTE .COMPLEX Qty: 21 0RF Rx Instructions: orally per package directions furosemide 40 mg tablet 40 mg PO QDAY Qty: 90 0RF lisinopril 40 mg tablet 40 mg PO DAILY Qty: 90 0RF spironolactone 25 mg tablet 25 mg PO QDAY Qty: 90 0RF albuterol sulfate 90 mcg/actuation HFA aerosol inhaler 2 puff inhalation Q6H PRN (Reason: Asthma) Qty: 8.5 0RF atorvastatin 40 mg tablet 40 mg PO DAILY Qty: 90 0RF bupropion HCl 300 mg tablet extended release 24 hr 300 mg PO DAILY Qty: 90 1RF semaglutide (weight loss) 2.4 mg/0.75 mL pen injector 2.4 mg subcut QWEEK Qty: 9 0RF Follow Up/Referrals: Bhupinder Arzola MD [Primary Care Provider, Family Practice] Stand Alone Forms: [employer] Info Instructions
--- NOTE | 2025-04-11 00:02 | CRLHL7_ITS ---
For Patients: As a result of the Century Cures Act, medical imaging exams and procedure reports are released immediately into your electronic medical record. You may view this report before your referring provider. If you have questions, please contact your health care provider. INDICATION: Low back pain. TECHNIQUE: CT lumbar spine without contrast. COMPARISON: CT abdomen and pelvis from the same day. FINDINGS: L4-5 posterior fusion. No evidence for hardware loosening or fracture. Small marginal osteophytes at all levels; however, the intervertebral disc spaces at the non fused levels are maintained. No acute fracture or traumatic subluxation. The facet joints are unremarkable. Right-sided extrarenal pelvis with surgical clips about the right proximal ureter. The soft tissues are otherwise unremarkable. IMPRESSION: No acute bony abnormality of the lumbar spine. Intact L4-5 posterior fusion hardware. Please note that all CT scans at this facility use dose modulation, iterative reconstruction, and/or weight-based dosing when appropriate to reduce radiation dose to as low as reasonably achievable. Dictated by Guru Chowdhury MD @ 04/11/2025 12:49:05 AM (Electronically Signed)
--- NOTE | 2025-04-11 00:02 | CRLHL7_ITS ---
For Patients: As a result of the Century Cures Act, medical imaging exams and procedure reports are released immediately into your electronic medical record. You may view this report before your referring provider. If you have questions, please contact your health care provider. INDICATION: Low back pain. TECHNIQUE: CT abdomen and pelvis without contrast. COMPARISON: None. FINDINGS: Lower chest: Unremarkable. Liver: Normal in size and attenuation. No suspicious masses. Gallbladder and bile ducts: Status post cholecystectomy. No abnormal biliary ductal dilatation. Pancreas: Unremarkable. No mass or inflammation. Spleen: Normal in size. No masses. Adrenal glands: Normal in size. No nodules. Kidneys: Few punctate nonobstructing bilateral nephroliths. Right extrarenal pelvis. No hydronephrosis. GI tract: Unremarkable. Normal in caliber. No sign of mass or inflammation. Normal appendix. Vasculature: Normal caliber abdominal aorta with mild atherosclerotic calcification. Lymph nodes: No lymphadenopathy. Peritoneum/Abdominal Wall: Unremarkable. No free air or significant free fluid. Pelvis: Status post hysterectomy. Bones: L4-5 posterior fusion. Otherwise, unremarkable for age. IMPRESSION: No acute findings within the abdomen and pelvis. Few punctate nonobstructing bilateral nephroliths. No evidence for obstructive uropathy. Please note that all CT scans at this facility use dose modulation, iterative reconstruction, and/or weight-based dosing when appropriate to reduce radiation dose to as low as reasonably achievable. Dictated by Guru Chowdhury MD @ 04/11/2025 12:43:08 AM (Electronically Signed)
[2025-04-11 00:19] LABS: Appearance Urine Clear (Clear)
[2025-04-11 00:37] VITALS: BP 228/118; PULSE 68; RESP 16; O2SAT 98
[2025-04-11 00:57] VITALS: BP 187/96
[2025-04-11] MEDS: LIDOCAINE 5% PATCH 1 PATCH TRANSDERMA (02:38)
== END 2025-04-11 02:38 | disposition home or self-care (01) ==
PROVIDERS: Emergency Provider Emergency Medicine; PCP Family Medicine
DX: M54.50 Low back pain, unspecified (principal); R82.90 Unspecified abnormal findings in urine; Z98.1 Arthrodesis status; Z87.442 Personal history of urinary calculi
CPT/HCPCS: 72131; 74176; 81001; 87086; 96374; 99284; 99285; A9270; J1885